=== PATIENT | female | born 1945 | race Caucasian/White ===

== ENCOUNTER 2022-05-20 00:30 | Inpatient (IN) | payer MEDICARE, OTHER, SELFPAY ==
[2022-05-20] VITALS (21 sets, daily range): BP systolic 126–151; BP diastolic 52–71; PULSE 40–63; RESP 13–18; TEMP 35.8–37.3; O2SAT 78–100; BMI 23.2; BMI 20.5
--- NOTE | 2022-05-20 00:36 | ED_ITS ---
HPI - General Adult General Chief complaint: Abdominal Pain Stated complaint: ABDOMINAL PAIN VOMITING Time Seen by Provider: 05/20/22 00:35 Source: patient Mode of arrival: ambulatory History of Present Illness HPI narrative: 77-year-old female who comes in with abdominal pain, nausea, and vomiting. Pain started about 90 minutes prior to coming the emergency department, generalized all over the abdomen, described as sharp and achy. Pain is constant, no relieving or exacerbating factors, not worse when lying down versus sitting up , no radiation. She did vomit once and continues to be nauseated. She denies diarrhea or constipation. She denies fever and chills. No urinary symptoms. Denies chest pain or shortness of breath. Tried Pepcid AC for this with no relief. No ill contacts. Related Data Home Medications Medication Instructions Recorded Confirmed atenolol 50 mg tablet 50 mg PO .QHS 05/20/22 05/20/22 atorvastatin 40 mg tablet 40 mg PO .QHS 05/20/22 05/20/22 calcium carbonate 200 mg calcium 1 tab PO DAILY 05/20/22 05/20/22 (500 mg)-vitamin D3 400 unit tablet coenzyme Q10 200 mg capsule 200 mg PO DAILY 05/20/22 05/20/22 famotidine PO 05/20/22 glucosamine-chondroitin 250 mg-200 2 tab PO TID 05/20/22 05/20/22 mg tablet (Osteo Bi-Flex) leflunomide 10 mg tablet 10 mg PO DAILY 05/20/22 05/20/22 omega-3 fatty acids 1,000 mg 1,000 mg PO DAILY 05/20/22 05/20/22 capsule trazodone 50 mg tablet 50 mg PO .QHS 05/20/22 05/20/22 triamterene 37.5 1 tab PO DAILY 05/20/22 05/20/22 mg-hydrochlorothiazide 25 mg tablet Allergies Allergy/AdvReac Type Severity Reaction Status Date / Time diclofenac Allergy Unknown Verified 05/20/22 01:05 Review of Systems Status of ROS: Reports: 10 or more systems reviewed and unremarkable except as noted in History and below [facility] Medical History (Updated 05/20/22 @ 04:56 by Nishant Kc MD) Arthritis Elevated cholesterol GERD (gastroesophageal reflux disease) Hypertension Osteoporosis Polyarthritis rheumatica Surgical History (Updated 05/20/22 @ 01:08 by Rajwinder Taylor RN) H/O tubal ligation History of appendectomy History of left knee replacement Social History Smoking Status: Unknown if ever smoked How often do you have a drink containing alcohol: never AUDIT-C Alcohol total score: 0 Non-prescribed substance use: denies use service: No Exam Const: Vital Signs, click to edit/add: Vital Signs - 24 hr 05/20/22 00:45 05/20/22 01:10 05/20/22 01:40 Temperature 96.4 F L Pulse Rate [Right Femoral] 43 L 42 L 43 L Pulse Rate [Right Pulse Oximeter] Respiratory Rate 18 16 18 Blood Pressure [Le ft Upper Arm] 144/60 H 126/55 L Blood Pressure [Ri ght Upper Arm] 139/60 Pulse Oximetry 97 100 89 05/20/22 02:00 05/20/22 02:20 05/20/22 02:30 Temperature Pulse Rate [Right Femoral] Pulse Rate [Right Pulse Oximeter] 45 L 46 L 53 L Respiratory Rate 16 18 18 Blood Pressure [Le ft Upper Arm] 137/59 L 140/57 H 147/71 H Blood Pressure [Ri ght Upper Arm] Pulse Oximetry 97 99 98 05/20/22 03:45 Temperature Pulse Rate [Right Femoral] Pulse Rate [Right Pulse Oximeter] 54 L Respiratory Rate 16 Blood Pressure [Le ft Upper Arm] 151/54 H Blood Pressure [Ri ght Upper Arm] Pulse Oximetry 95 Documenting provider has reviewed patient's vital signs: yes Common normals: no apparent distress, oriented x3, alert and well nourished HENMT: Common normals: normocephalic, head/scalp atraumatic, external ears normal and external nose normal Head and scalp: normocephalic and atraumatic Nose: external nose normal External ear: external ears normal Eye: Common normals: PERRL and conjunctivae normal Conjunctiva: conjunctiva(e) normal Pupil: PERRL Neck & C-Spine: Common normals: full ROM, no lymphadenopathy and supple Chest: Common normals: palpation of chest normal Resp: Common normals: normal respiratory effort and clear to auscultation bilaterally Auscultation: clear to auscultation bilaterally Cardio: Common normals: regular rhythm and no murmurs Rate: bradycardic Rhythm: regular rhythm GI: Common normals: Normal to inspection, nondistended, normoactive bowel sounds present and soft to palpation Palpation: soft and tender ( diffuse, particularly in the right upper quadrant and left lower quadrant) : Common normals: no CVA tenderness Bladder/kidney exam: no CVA tenderness Back & Pelvis: Common normals: no CVA tenderness and thoracic and lumbar spine normal to inspection Extremity: Common normals: normal to inspection, full ROM and no pedal edema Neuro: Common normals: oriented x3, CN's II-XII intact bilaterally and no focal motor deficits Sensorium/orientation: alert Psych: Common normals: mental status grossly normal Skin: Common normals: no rashes or lesions noted General skin exam: no rashes or lesions noted Course Reevaluation(s) Reevaluation #1: Labs so far reassuring with normal white blood cell count, normal lipase. CT scan does not demonstrate any acute findings, there is a large hiatal hernia. No definite etiology for patient's symptoms is found yet. She is continuously bradycardic and also noted to be intermittently hypoxic down to the 70s although with no respiratory distress. This may be related to the lab of the was given although patient is awake alert. Right upper quadrant ultrasound is ordered, troponin ordered, patient is not yet provided a urine sample. COVID and influenza test. Patient is noted to have lymphocytosis of unclear clinical significance. Pain is improved after Dilaudid IV and nausea and vomiting resolved. Time: 02:08 Reevaluation #2: Patient recheck, was feeling better but nausea vomiting have returned and patient is dry heaving. Discussed findings so far, recommendation for observation in the hospital to work on symptom management and also make sure there are no other underlying conditions causing this. Patient is agreeable. Time: 04:49 Reevaluation #3: Care discussed with [facility] hospitalist for admission. Time: 04:55 Vital Signs Vital signs: Initial Vital Signs Temperature 96.4 F L 05/20/22 00:45 Temperature Source Temporal Artery Scan 05/20/22 00:45 Pulse Rate 43 L 05/20/22 00:45 Pulse Rhythm 05/20/22 00:45 Respiratory Rate 18 05/20/22 00:45 Blood Pressure 139/60 05/20/22 00:45 Blood Pressure Mean 86 05/20/22 00:45 Blood Pressure Position Semi-Fowlers 05/20/22 00:45 Pulse Oximetry 97 05/20/22 00:45 Oxygen Delivery Method 05/20/22 00:45 Vital Signs Temperature 96.4 F L 05/20/22 00:45 Pulse Rate 43 L 05/20/22 00:45 Respiratory Rate 18 05/20/22 00:45 Blood Pressure 139/60 05/20/22 00:45 Pulse Oximetry 97 05/20/22 00:45 Temperature 96.4 F L 05/20/22 00:45 Pulse Rate 54 L 05/20/22 03:45 Respiratory Rate 16 05/20/22 03:45 Blood Pressure 151/54 H 05/20/22 03:45 Pulse Oximetry 95 05/20/22 03:45 Medical Decision Making MDM Narrative Medical decision making narrative: Patient seen examined, prior records reviewed. Differential diagnosis includes but not limited to gastritis, gastric ulcer, colitis, pancreatitis, acute cholecystitis, diverticulitis, appendicitis, urinary tract infection, bowel obstruction, perforation, kidney stone. Patient presents with abdominal pain, nausea, vomiting. she has generalized tenderness worse in the right upper quadrant left lower quadrant. Based on age and risk factors, acute cholecystitis is certainly concern, diverticulitis Also possibility.Labs and imaging ordered and personally reviewed by me. Zofran and Dilaudid IV ordered for pain. Patient presents with generalized abdominal pain and vomiting starting tonight. On initial presentation, pale and uncomfortable appearing with diffuse abdominal tenderness, decreased bowel sounds throughout. Symptoms improved with Zofran and Dilaudid although patient started having vomiting and dry heaves again while in department and additional Zofran was given. No etiology for symptoms found, considered acute cholecystitis but CT scan of right upper quadrant ultrasound are both negative, LFTs are normal. Normal pancreatic appearance on CT and lipase is normal. No evidence for obstruction on CT scan. No evidence for diverticulitis or colitis on CT scan, white blood cell count is normal. Urinalysis does not reveal any signs of infection, influenza and COVID testing negative. Troponin negative, EKG bradycardic reassuring, acute coronary syndrome is unlikely. Patient denies chest pain, back pain, aortic dissection or other aortic pathology is unlikely. Chest x-ray negative for infiltrates or effusions. Patient does have a large hiatal hernia which is chronic. Due to continued nausea and vomiting as well as abdominal pain of uncertain etiology, patient will be observed for further evaluation treatment. patient is agreeable to this. Medical Records Medical records reviewed: Yes I reviewed the patient's medical records Lab Data Lab results reviewed: Yes I reviewed the patient's lab results Labs: Lab Results 05/20/22 05/20/22 05/20/22 Range/Units 00:50 00:50 00:50 WBC 6.94 (4.50-11.00) K/uL RBC 3.63 L (4.00-5.20) m/uL Hgb 11.4 L (12.0-16.0) gm/dL Hct 35.5 (33.0-51.0) % MCV 98 (80-100) fL MCH 31 (26-34) pg MCHC 32 (32-36) gm/dL RDW Coeff of Alberto 12.6 (11.5-15.5) % Plt Count 267 (140-440) K/uL Neut % (Auto) 26.9 L (42.0-72.0) % Lymph % (Auto) 52.9 H (20-44) % Jennings % (Auto) 10.4 (0.0-11.0) % Eos % (Auto) 8.8 H (0.0-7.0) % Baso % (Auto) 0.6 (0.0-3.0) % Neut # (Auto) 1.90 (1.7-7.0) K/uL Lymph # (Auto) 3.70 H (0.90-2.90) K/uL Jennings # (Auto) 0.70 (0.00-0.90) K/UL Eos # (Auto) 0.60 H (0.00-0.50) K/uL Baso # (Auto) 0.04 (0.00-0.30) K/uL Abs Immat Gran (auto) 0.03 (0.00-0.30) K/uL Sodium 136 (135-149) mmol/L Potassium 4.0 (3.6-5.1) mmol/L Chloride 104 (96-114) mmol/L Carbon Dioxide 28 (20-32) mmol/L BUN 17 (7-30) mg/dL Creatinine 1.3 (0.5-1.5) mg/dL Estimated Creat Clear 31.29 Glucose 137 H (60-115) mg/dL Lactate 1.7 (0.5-1.9) mmol/L Calcium 9.0 (8.4-10.6) mg/dL Total Bilirubin 0.3 (0.1-1.5) mg/dL Direct Bilirubin 0.3 (0.0-0.5) mg/dL AST 47 H (12-35) U/L ALT 22 (4-35) U/L Alkaline Phosphatase 53 (40-150) U/L Total Protein 6.3 (6.0-8.3) g/dL Albumin 4.0 (3.3-5.0) g/dL Lipase 249 (23-300) U/L Urine Color (Yellow) Urine Appearance (Clear) Urine pH (5.0-8.5) Ur Specific [place] (1.000-1.030) Urine Protein (Negative) Urine Glucose (UA) (Negative) Urine Ketones (Negative) Urine Blood (Negative) Urine Nitrite (Negative) Urine Bilirubin (Negative) Urine Urobilinogen (0.2-1.0) Ur Leukocyte Esterase (Negative) Urine RBC (0-2) Urine WBC (0-5) Ur Squamous Epith Cells (None-Few) Urine Bacteria (None) SARS-CoV-2 (PCR) (Negative) Influenza Type A (PCR) (Negative) Influenza Type B (PCR) (Negative) POC Troponin I (0.01-0.04) ng/ml 05/20/22 05/20/22 05/20/22 Range/Units 02:15 02:25 03:45 WBC (4.50-11.00) K/uL RBC (4.00-5.20) m/uL Hgb (12.0-16.0) gm/dL Hct (33.0-51.0) % MCV (80-100) fL MCH (26-34) pg MCHC (32-36) gm/dL RDW Coeff of Alberto (11.5-15.5) % Plt Count (140-440) K/uL Neut % (Auto) (42.0-72.0) % Lymph % (Auto) (20-44) % Jennings % (Auto) (0.0-11.0) % Eos % (Auto) (0.0-7.0) % Baso % (Auto) (0.0-3.0) % Neut # (Auto) (1.7-7.0) K/uL Lymph # (Auto) (0.90-2.90) K/uL Jennings # (Auto) (0.00-0.90) K/UL Eos # (Auto) (0.00-0.50) K/uL Baso # (Auto) (0.00-0.30) K/uL Abs Immat Gran (auto) (0.00-0.30) K/uL Sodium (135-149) mmol/L Potassium (3.6-5.1) mmol/L Chloride (96-114) mmol/L Carbon Dioxide (20-32) mmol/L BUN (7-30) mg/dL Creatinine (0.5-1.5) mg/dL Estimated Creat Clear Glucose (60-115) mg/dL Lactate (0.5-1.9) mmol/L Calcium (8.4-10.6) mg/dL Total Bilirubin (0.1-1.5) mg/dL Direct Bilirubin (0.0-0.5) mg/dL AST (12-35) U/L ALT (4-35) U/L Alkaline Phosphatase (40-150) U/L Total Protein (6.0-8.3) g/dL Albumin (3.3-5.0) g/dL Lipase (23-300) U/L Urine Color Yellow (Yellow) Urine Appearance Clear (Clear) Urine pH 6.0 (5.0-8.5) Ur Specific [place] 1.025 (1.000-1.030) Urine Protein Negative (Negative) Urine Glucose (UA) Negative (Negative) Urine Ketones Negative (Negative) Urine Blood Negative (Negative) Urine Nitrite Negative (Negative) Urine Bilirubin Negative (Negative) Urine Urobilinogen 0.2 (0.2-1.0) Ur Leukocyte Esterase Negative (Negative) Urine RBC 0-2 (0-2) Urine WBC 0-2 (0-5) Ur Squamous Epith Cells Moderate A (None-Few) Urine Bacteria Few A (None) SARS-CoV-2 (PCR) Negative SARS-CoV-2 (Negative) Influenza Type A (PCR) NEGATIVE (Negative) Influenza Type B (PCR) NEGATIVE (Negative) POC Troponin I 0.00 L (0.01-0.04) ng/ml ECG Data Attestation: I personally reviewed and interpreted this ECG as follows: Prior ECG tracings: available for review Interpretation: Performed at 1:07 a.m. demonstrates sinus bradycardia rate 44, no acute ST elevations or depressions, normal intervals, normal axis, QTC 47, KS 174. Compared to prior of 2008, bradycardia is present Discharge Plan Discharge Clinical Impression: Intractable nausea and vomiting, Abdominal pain, Hernia, hiatal Patient Disposition: Admitted As Inpatient Prescriptions: No Action atorvastatin 40 mg tablet 40 mg PO .QHS 0RF trazodone 50 mg tablet 50 mg PO .QHS 0RF leflunomide 10 mg tablet 10 mg PO DAILY 0RF triamterene-hydrochlorothiazid 37.5-25 mg tablet 1 tab PO DAILY 0RF Rx Instructions: 10MG PO DAILY atenolol 50 mg tablet 50 mg PO .QHS 0RF glucosamine-chondroitin [Osteo Bi-Flex] 250-200 mg tablet 2 tab PO TID 0RF Rx Instructions: give after food/meal omega-3 fatty acids 1,000 mg capsule 1,000 mg PO DAILY 0RF coenzyme Q10 200 mg capsule 200 mg PO DAILY 0RF calcium carbonate-vitamin D3 200 mg (500 mg) -400 unit tablet 1 tab PO DAILY 0RF famotidine [Pepcid AC] PO 0RF Follow Up/Referrals: Provider,Not a Local [Primary Care Provider] -
--- NOTE | 2022-05-20 00:48 | CRLHL7_ITS ---
For Patients: As a result of the Century Cures Act, medical imaging exams and procedure reports are released immediately into your electronic medical record. You may view this report before your referring provider. If you have questions, please contact your health care provider. INDICATION: Abdominal pain and vomiting. COMPARISON: COMPARISON DATE TECHNIQUE: CT examination of the abdomen and pelvis was performed without contrast enhancement using 3 mm thick axial sections from the lung bases through the pubic symphysis. Oral contrast was not administered. Please note that all CT scans at this facility use dose modulation, iterative reconstruction, and/or weight-based dosing when appropriate to reduce radiation dose to as low as reasonably achievable. FINDINGS: In the abdomen, the unenhanced liver, spleen, pancreas, and adrenals are normal in appearance. The unenhanced kidneys are normal in appearance. The gallbladder is normal in appearance. The abdominal aorta is normal in caliber with no sign of dilatation. There is no sign of retroperitoneal mass or adenopathy. There is a large hiatal hernia with the majority of the stomach and the nonobstructive splenic flexure of the colon located within the central and left lower chest. The gastric antrum is located in the abdominal cavity. The loops of small bowel and the rest of the colon in the abdomen are normal in appearance. In the pelvis, the appendix is nonvisualized, but there is no sign of an inflammatory process in the area of the appendix. There is prominent sigmoid diverticulosis without evidence of diverticulitis. The loops of small bowel and rectum in the pelvis are otherwise normal in appearance. The uterus and adnexal regions are normal in appearance. The urinary bladder is normal in appearance. There is no sign of pelvic or inguinal mass or adenopathy. There is no sign of free air or free fluid in the abdomen or pelvis. The lung bases are clear. There is prominent scoliosis of the superior lumbar spine convex towards the left. There is severe disc degenerative disease throughout the lumbar spine related to the scoliosis. IMPRESSION: Nothing seen to correlate with the history of abdominal pain and vomiting. CT of the abdomen shows a large hiatal hernia otherwise normal appearance of the stomach. The hiatal hernia the nonobstructed splenic flexure of the colon. CT of the pelvis shows prominent sigmoid diverticulosis with no sign of diverticulitis. Please note that all CT scans at this facility use dose modulation, iterative reconstruction, and/or weight-based dosing when appropriate to reduce radiation dose to as low as reasonably achievable. Dictated by Chun Gifford MD @ 05/20/2022 1:43:54 AM (Electronically Signed)
[2022-05-20 00:56] LABS: Lactate* 1.7 mmol/L (0.5-1.9)
[2022-05-20 00:58] LABS: Basophils Absolute Auto 0.04 K/uL (0.00-0.30); Basophils Percent Auto 0.6 % (0.0-3.0); Eosinophils Percent Auto 8.8 % (0.0-7.0); Hematocrit 35.5 % (33.0-51.0); Hemoglobin* 11.4 gm/dL (12.0-16.0); Immature Granulocytes Abs Auto 0.03 K/uL (0.00-0.30); Lymphocytes Percent Auto 52.9 % (20-44); Mean Corpuscular HGB Conc 32 gm/dL (32-36); Mean Corpuscular Hemoglobin 31 pg (26-34); Mean Corpuscular Volume 98 fL (80-100); Monocytes Percent Auto 10.4 % (0.0-11.0); Neutrophils Percent Auto 26.9 % (42.0-72.0); Platelet Count* 267 K/uL (140-440); RDW Coefficient of Variation % 12.6 % (11.5-15.5); Red Blood Count 3.63 m/uL (4.00-5.20); White Blood Count* 6.94 K/uL (4.50-11.00)
[2022-05-20 01:02] LABS: Slide Review Reflex No
[2022-05-20] MEDS: ONDANSETRON 2 MG/ML inj 4 MG IVP ×4 (01:04→18:38)
[2022-05-20] MEDS: HYDROmorphone 0.5 mg/0.5 ml inj IVP ×6 (01:05→21:30)
[2022-05-20 01:30] LABS: Chloride* 104 mmol/L (96-114)
[2022-05-20 01:31] LABS: Sodium* 136 mmol/L (135-149)
[2022-05-20 01:33] LABS: Alkaline Phosphatase* 53 U/L (40-150); Aspartate Amino Transferase* 47 U/L (12-35); Bilirubin Direct* 0.3 mg/dL (0.0-0.5); Bilirubin Total* 0.3 mg/dL (0.1-1.5); Blood Urea Nitrogen* 17 mg/dL (7-30); Carbon Dioxide* 28 mmol/L (20-32); Creatinine* 1.3 mg/dL (0.5-1.5); Est. Creatinine Clearance* 31.29; Estimated Glomerular Filt Rate 42.35; Glucose* 137 mg/dL (60-115); Lipase* 249 U/L (23-300); Total Protein* 6.3 g/dL (6.0-8.3)
[2022-05-20 01:34] LABS: Alanine Aminotransferase* 22 U/L (4-35)
--- NOTE | 2022-05-20 01:56 | ED.NURSE ---
Patient having episodes of decreased SpO2 levels in to the 70's. MD notified. Patient placed on 2 lpm oxygen via [place].
--- NOTE | 2022-05-20 02:11 | CRLHL7_ITS ---
For Patients: As a result of the Cures Act, medical imaging exams and procedure reports are released immediately into your electronic medical record. You may view this report before your referring provider. If you have questions, please contact your health care provider. INDICATION: Vomiting, abdominal pain TECHNIQUE: Ultrasound abdomen limited. Sonographic images of the right upper quadrant were obtained using rey-scale and color Doppler images. COMPARISON: CT 05/20/2022 FINDINGS: The sensitivity and specificity of the exam are moderately limited by the patient`s body habitus and overlying bowel gas. Liver: The liver parenchyma is normal in echotexture. Gallbladder: The neck of the gallbladder is not well demonstrated. No gallstones or sludge seen in the lumen. The gallbladder wall is normal in appearance. No pericholecystic fluid is present. No sonographic Beltre???s sign is present. Common bile duct: 3 mm. No intrahepatic biliary ductal dilatation seen. Pancreas: The visualized portions of the pancreatic head and body are normal in appearance. Right Kidney: 8.3 cm. No hydronephrosis or ureterectasis is seen. Vascular: The visualized abdominal aorta and IVC are unremarkable. The visualized portal vein is patent with normal anterograde flow. IMPRESSION: 1. The right upper quadrant is unremarkable in appearance. Dictated by Sanket Alonso MD @ 05/20/2022 3:44:10 AM Dictated by: Sanket Alonso MD @ 05/20/2022 03:44:13 (Electronically Signed)
--- NOTE | 2022-05-20 02:12 | CRLHL7_ITS ---
For Patients: As a result of the Cures Act, medical imaging exams and procedure reports are released immediately into your electronic medical record. You may view this report before your referring provider. If you have questions, please contact your health care provider. INDICATION: Vomiting, low oxygen saturations TECHNIQUE: Chest radiograph 2 views COMPARISON: None FINDINGS: Mediastinum: Moderate to large sliding type gastric hiatal hernia (type IV) is present. The heart silhouette is normal in size and morphology. Lung: Both lungs are unremarkable in appearance. No sign of pleural effusion seen. No pneumothorax is identified. Bone and Soft tissue: Unremarkable for age. IMPRESSION: 1. Moderate to large sliding type gastric hiatal hernia (type IV) is present. Dictated by Sanket Alonso MD @ 05/20/2022 2:59:07 AM Dictated by: Sanket Alonso MD @ 05/20/2022 02:59:13 (Electronically Signed)
--- NOTE | 2022-05-20 02:32 | ED.NURSE ---
Patient resting on cot in room with at bedside. Awaiting on-call u/s tech.
[2022-05-20 03:01] LABS: PCR FLU A NEGATIVE (Negative); PCR FLU B NEGATIVE (Negative); SARS PCR* Negative SARS-CoV-2 (Negative)
[2022-05-20 03:56] LABS: Appearance Urine Clear (Clear); Bilirubin Urine Negative (Negative); Blood Urine Negative (Negative); Color Urine Yellow (Yellow); Glucose Urine Negative (Negative); Ketones Urine Negative (Negative); Leukocyte Esterase Urine Negative (Negative); Nitrite Urine Negative (Negative); Protein Urine Negative (Negative); Specific Gravity Urine 1.025 (1.000-1.030); Urobilinogen Urine 0.2 (0.2-1.0)
[2022-05-20 04:06] LABS: RBC Urine 0-2 (0-2); WBC Urine 0-2 (0-5)
[2022-05-20 04:07] LABS: Bacteria Urine Few; Squamous Epithelial Cell Urine Moderate (None-Few)
--- NOTE | 2022-05-20 04:15 | ED.NURSE ---
Patient ambulatory to . Urine collected and sent to lab.
[2022-05-20] MEDS: 0.9 % SODIUM CHLORIDE 500 ML 500 ML 250 ML IV (05:15)
[2022-05-20] MEDS: PANTOPRAZOLE SODIUM 40 MG INJ IVP (05:27)
--- NOTE | 2022-05-20 06:20 | W.PC.EDHO ---
Primary Language: Preferred Language: Orientation Status: [x] Alert & Oriented [] Slight Confusion [] Known Dx Dementia Transfers By: [x] Assist of 1 [] Assist of 2 [] Lift IV Size: 20g IV Site Location: R a/c Description of Symptoms ED Triage Present Problem Patient c/o medial abdominal pain and vomiting x 3 Description that started at 2300 today. Patient rates this pain at a 10. Patient denies prior abdominal problems with the exception of a h/o appendectomy. ED Triage Date of Onset of 05/19/22 Symptoms Female History Patient Patient No Pain Pain Description [Medial Burning,Sharp,Dull, Achy,Cramping Abdomen] Pain Description [Medial Burning,Sharp,Cramping Abdomen] Pain Description Sharp Pain Intensity [Medial Abdomen 9 ] Pain Intensity [Medial Abdomen 10 ] Pain Intensity 9 Pain Intensity 10 Pain Scale Used [Medial Numeric (1 - 10) Abdomen] Pain Scale Used Numeric (1 - 10) Pain Scale Used Numeric (1 - 10) Pain Frequency Frequent IV Insertion/Site Date of IV Line Insertion [ 05/20/22 Right Upper Arm] Oxygen Administration Pulse Oximetry 99 Pulse Oximetry 91 Pulse Oximetry 95 Pulse Oximetry 95 Pulse Oximetry 98 Pulse Oximetry 99 Pulse Oximetry 97 Pulse Oximetry 78 Pulse Oximetry 89 Pulse Oximetry 100 Pulse Oximetry 97 Oxygen Delivery Method Room Air Oxygen Delivery Method Room Air Oxygen Delivery Method Room Air Oxygen Delivery Method Room Air Oxygen Delivery Method Nasal Cannula Oxygen Delivery Method Nasal Cannula Oxygen Delivery Method Nasal Cannula Oxygen Delivery Method Nasal Cannula Oxygen Delivery Method Room Air Oxygen Delivery Method Room Air Oxygen Delivery Method Room Air Oxygen Flow Rate 3 Oxygen Flow Rate 3 Oxygen Flow Rate 3 Oxygen Flow Rate 2 Cardiac Monitoring EKG Method 12 Lead
[2022-05-20] MEDS: LACTATED RINGERS 1000 ML 500 ML IV (10:10)
--- NOTE | 2022-05-20 11:52 | P.IMHP_ITS ---
Hospitalist- H&P: HPI History of Present Illness Time Seen by Provider: 08:30 Date Seen: 05/20/22 Chief complaint: ABDOMINAL PAIN VOMITING Narrative: Moni Hdez is a 77 year old female presented the emergency room late last night with abdominal pain and vomiting. Patient reported feeling well yesterday. She had a evening meal around 5:00 a.m. without difficulties. She went to bed and awoke at 11:00 pm with severe generalized abdominal pain. She then had dry heaves. She was not vomiting any substance up but had recurrent dry heaves. She has not had a fever or shortness of breath or chest pain. She tells me she had a milder episode about a week ago. It occurred while she was sitting down to eat pizza. While she was eating pizza she had pain and stopped eating immediately. Her symptoms resolved without intervention. She has no other history of abdominal pain or vomiting. Past surgical history includes appendectomy and tubal ligation. She has not had any urinary symptoms, frequency urgency dysuria. Her bowel function has been normal without diarrhea, constipation, melena, hematochezia. She tells me she has been told she has a hiatal hernia in the past but is not been symptomatic for her. Review of Systems Narrative: patient reports that she has been generally feeling well without other health concerns recently until this episode at 11:00 p.m. last night. Complete review of systems is otherwise negative. [facility] Medical History (Updated 05/20/22 @ 12:05 by Pro Catalan MD) Anemia Arthritis DVT (deep venous thrombosis) Elevated cholesterol Generalized osteoarthritis GERD (gastroesophageal reflux disease) Hyperlipidemia Hypertension Inflammatory spondylopathy Osteoporosis Polyarthritis rheumatica Raynaud phenomenon Surgical History H/O blepharoplasty H/O tubal ligation History of appendectomy History of left knee replacement Family History (Updated 05/20/22 @ 12:03 by Pro Catalan MD) Father Dementia Mother Coronary artery disease Social History Smoking Status: Never smoker How often do you have a drink containing alcohol: never AUDIT-C Alcohol total score: 0 Non-prescribed substance use: denies use Caffeine: Yes (1-2 cup coffee) service: No Meds Home Medications and Allergies Home Medications Medication Instructions Recorded Confirmed Type atenolol 50 mg tablet 50 mg PO HS 05/20/22 05/20/22 History atorvastatin 40 mg tablet 40 mg PO HS 05/20/22 05/20/22 History calcium carbonate 200 mg calcium 1 tab PO DAILY 05/20/22 05/20/22 History (500 mg)-vitamin D3 400 unit tablet coenzyme Q10 200 mg capsule 200 mg PO DAILY 05/20/22 05/20/22 History famotidine PO 05/20/22 History glucosamine-chondroitin 250 mg-200 2 tab PO TID 05/20/22 05/20/22 History mg tablet (Osteo Bi-Flex) leflunomide 10 mg tablet 10 mg PO DAILY 05/20/22 05/20/22 History omega-3 fatty acids 1,000 mg 1,000 mg PO DAILY 05/20/22 05/20/22 History capsule trazodone 50 mg tablet 50 mg PO HS 05/20/22 05/20/22 History triamterene 37.5 1 tab PO DAILY 05/20/22 05/20/22 History mg-hydrochlorothiazide 25 mg tablet Allergies Allergy/AdvReac Type Severity Reaction Status Date / Time diclofenac Allergy Unknown Verified 05/20/22 01:05 Exam Narrative: Exam Narrative: she is alert and appears in no distress. Speech is normal. She gives her own history. She is oriented to her circumstances. Head is without trauma. Eyes normal. Sclerae nonicteric. Oropharynx is normal. Neck is supple without mass or adenopathy. No tenderness. Respirations are clear to auscultation. No wheezing, rales, rhonchi. Cardiovascular: S1, S2, regular rate and rhythm. No murmur gallop or rub. Abdomen: Bowel sounds active. Abdomen is soft. She has mild diffuse abdominal tenderness somewhat more prominent in the epigastrium than elsewhere. No palpable mass. She has no CVA tenderness. No peritonitis. External genitalia normal. Extremities with intact pulses and sensation. No edema. No tenderness. No rash. Const: Vital Signs, click to edit/add: Vital Signs - 24 hr 05/20/22 00:45 05/20/22 01:10 05/20/22 01:40 Temperature 96.4 F L Pulse Rate Pulse Rate [Right Femoral] 43 L 42 L 43 L Pulse Rate [Right Pulse Oximeter] Respiratory Rate 18 16 18 Blood Pressure [Le ft Arm] Blood Pressure [Le ft Upper Arm] 144/60 H 126/55 L Blood Pressure [Ri ght Upper Arm] 139/60 Pulse Oximetry 97 100 89 05/20/22 01:56 05/20/22 02:00 05/20/22 02:20 Temperature Pulse Rate Pulse Rate [Right Femoral] Pulse Rate [Right Pulse Oximeter] 45 L 46 L Respiratory Rate 16 18 Blood Pressure [Le ft Arm] Blood Pressure [Le ft Upper Arm] 137/59 L 140/57 H Blood Pressure [Ri ght Upper Arm] Pulse Oximetry 78 L 97 99 05/20/22 02:30 05/20/22 03:45 05/20/22 04:00 Temperature Pulse Rate Pulse Rate [Right Femoral] Pulse Rate [Right Pulse Oximeter] 53 L 54 L 52 L Respiratory Rate 18 16 18 Blood Pressure [Le ft Arm] Blood Pressure [Le ft Upper Arm] 147/71 H 151/54 H 148/67 H Blood Pressure [Ri ght Upper Arm] Pulse Oximetry 98 95 95 05/20/22 04:30 05/20/22 05:00 05/20/22 07:00 Temperature 97.1 F L Pulse Rate Pulse Rate [Right Femoral] Pulse Rate [Right Pulse Oximeter] 41 L 63 Respiratory Rate 13 17 18 Blood Pressure [Le ft Arm] 146/57 H Blood Pressure [Le ft Upper Arm] 128/52 L 127/61 Blood Pressure [Ri ght Upper Arm] Pulse Oximetry 91 99 95 05/20/22 07:23 05/20/22 07:32 05/20/22 08:00 Temperature 97.1 F L 97.6 F Pulse Rate Pulse Rate [Right Femoral] Pulse Rate [Right Pulse Oximeter] 40 L Respiratory Rate 18 18 16 Blood Pressure [Le ft Arm] 146/57 H 130/52 L Blood Pressure [Le ft Upper Arm] Blood Pressure [Ri ght Upper Arm] Pulse Oximetry 95 95 98 05/20/22 08:15 05/20/22 08:26 Temperature Pulse Rate 40 L Pulse Rate [Right Femoral] Pulse Rate [Right Pulse Oximeter] 40 L Respiratory Rate Blood Pressure [Le ft Arm] Blood Pressure [Le ft Upper Arm] Blood Pressure [Ri ght Upper Arm] Pulse Oximetry Documenting provider has reviewed patient's vital signs: yes Hospitalist - H&P: Result Labs Labs: Short CBC 05/20/22 Range/Units 00:50 WBC 6.94 (4.50-11.00) K/uL Hgb 11.4 L (12.0-16.0) gm/dL Hct 35.5 (33.0-51.0) % Plt Count 267 (140-440) K/uL BMP 05/20/22 00:50 Sodium 136 Potassium 4.0 Chloride 104 Carbon Dioxide 28 BUN 17 Creatinine 1.3 Glucose 137 H Calcium 9.0 Liver Function 05/20/22 Range/Units 00:50 Total Bilirubin 0.3 (0.1-1.5) mg/dL Direct Bilirubin 0.3 (0.0-0.5) mg/dL AST 47 H (12-35) U/L ALT 22 (4-35) U/L Alkaline Phosphatase 53 (40-150) U/L Albumin 4.0 (3.3-5.0) g/dL Urine 05/20/22 Range/Units 03:45 Urine Color Yellow (Yellow) Urine Appearance Clear (Clear) Urine pH 6.0 (5.0-8.5) Ur Specific [place] 1.025 (1.000-1.030) Urine Protein Negative (Negative) Urine Glucose (UA) Negative (Negative) Assessment and Plan Assessment and plan (1) Intractable nausea and vomiting: Status: Acute Assessment and Plan: I suspect her abdominal pain and dry heaves are both due to an upper GI problem possibly intermittent gastric volvulus or other obstruction. Other obstructive process less likely. Biliary disease still a possibility though initial imaging is reassuring. Consult General surgery (2) Abdominal pain: Status: Acute Assessment and Plan: see above (3) Hernia, hiatal: Status: Acute Assessment and Plan: see above (4) DVT (deep venous thrombosis): Problem comment: had DVT on hormone replacement therapy Status: Acute Assessment and Plan: VTE prophylaxis (5) Bradycardia: Status: Acute Assessment and Plan: hold atenolol
[2022-05-20] MEDS: LACTATED RINGERS 1000 ML 1,000 ML 125 ML IV ×2 (12:30→17:49)
--- NOTE | 2022-05-20 12:41 | P.GSCN_ITS ---
History of Present Illness Consult details Consult date: 05/20/22 Narrative: 77-year-old female was admitted to the hospital with abdominal pain and I was asked by Dr. Catalan to see here in consultation. The patient states that her pain started over 70 yesterday when she went to bed. The pain was severe and sharp. The pain was located in epigastrium and was radiating throughout her abdomen. Patient also had multiple episodes of vomiting that she describes as dry heaving With fluid coming out. She states that her pain is slightly better but not completely gone. The pain medication is helping with her pain. She is not passing gas. Patient's last bowel movement was yesterday and she usually has regular bowel movements. Patient was found to have a normal WBC and normal liver function tests with the exception of ALT at 47. Gallbladder ultrasound was obtained that showed no cholelithiasis and no pericholecystic fluid. Her common bile duct was [address] was obtained that showed a large hiatal hernia with incarcerated stomach and splenic flexure of the colon with no evidence of Colonic obstruction. overall there are no dilated loops of small large intestine. Review of Systems Narrative: General: no fevers HENT: no problems swallowing CV: no shortness of breath Resp: no cough GI: see above Skin: no new rashes Musculoskeletal: no back pain Neuro: no muscle weakness Psyche: no depression, no anxiety PFSH PFSH Medical History Anemia Arthritis DVT (deep venous thrombosis) Elevated cholesterol Generalized osteoarthritis GERD (gastroesophageal reflux disease) Hyperlipidemia Hypertension Inflammatory spondylopathy Osteoporosis Polyarthritis rheumatica Raynaud phenomenon Surgical History H/O blepharoplasty H/O tubal ligation History of appendectomy History of left knee replacement Family History Father Dementia Mother Coronary artery disease Social History (Updated 05/20/22 @ 12:44 by Derek John MD) Narrative: patient is retired Smoking Status: Never smoker How often do you have a drink containing alcohol: never AUDIT-C Alcohol total score: 0 Non-prescribed substance use: denies use Caffeine: Yes (1-2 cup coffee) service: No Meds Home Medications and Allergies Home Medications Medication Instructions Recorded Confirmed Type atenolol 50 mg tablet 50 mg PO HS 05/20/22 05/20/22 History atorvastatin 40 mg tablet 40 mg PO HS 05/20/22 05/20/22 History calcium carbonate 200 mg calcium 1 tab PO DAILY 05/20/22 05/20/22 History (500 mg)-vitamin D3 400 unit tablet coenzyme Q10 200 mg capsule 200 mg PO DAILY 05/20/22 05/20/22 History famotidine PO 05/20/22 History glucosamine-chondroitin 250 mg-200 2 tab PO TID 05/20/22 05/20/22 History mg tablet (Osteo Bi-Flex) leflunomide 10 mg tablet 10 mg PO DAILY 05/20/22 05/20/22 History omega-3 fatty acids 1,000 mg 1,000 mg PO DAILY 05/20/22 05/20/22 History capsule trazodone 50 mg tablet 50 mg PO HS 05/20/22 05/20/22 History triamterene 37.5 1 tab PO DAILY 05/20/22 05/20/22 History mg-hydrochlorothiazide 25 mg tablet Allergies Allergy/AdvReac Type Severity Reaction Status Date / Time diclofenac Allergy Unknown Verified 05/20/22 01:05 Exam Narrative: Exam Narrative: General appearance: Alert, cooperative, and in no distress Pulmonary: Chest symmetric, lungs clear bilaterally Cardiovascular Heart: Regular rate and rhythm, S1, S2, no murmurs/rubs/gallops Gastrointestinal Abdominal: soft, not distended, tender to palpation in the right lower quadrant and epigastrium with no peritoneal signs. No tenderness to palpation in the left lower quadrant. Skin: Normal skin color, texture, and turgor. No rashes or lesions. Psychiatric: Alert, cooperative, normal affect. Const: Vital Signs, click to edit/add: Vital Signs - 24 hr 05/20/22 00:45 05/20/22 01:10 05/20/22 01:40 Temperature 96.4 F L Pulse Rate Pulse Rate [Right Femoral] 43 L 42 L 43 L Pulse Rate [Right Pulse Oximeter] Respiratory Rate 18 16 18 Blood Pressure [Le ft Arm] Blood Pressure [Le ft Upper Arm] 144/60 H 126/55 L Blood Pressure [Ri ght Upper Arm] 139/60 Pulse Oximetry 97 100 89 05/20/22 01:56 05/20/22 02:00 05/20/22 02:20 Temperature Pulse Rate Pulse Rate [Right Femoral] Pulse Rate [Right Pulse Oximeter] 45 L 46 L Respiratory Rate 16 18 Blood Pressure [Le ft Arm] Blood Pressure [Le ft Upper Arm] 137/59 L 140/57 H Blood Pressure [Ri ght Upper Arm] Pulse Oximetry 78 L 97 99 05/20/22 02:30 05/20/22 03:45 05/20/22 04:00 Temperature Pulse Rate Pulse Rate [Right Femoral] Pulse Rate [Right Pulse Oximeter] 53 L 54 L 52 L Respiratory Rate 18 16 18 Blood Pressure [Le ft Arm] Blood Pressure [Le ft Upper Arm] 147/71 H 151/54 H 148/67 H Blood Pressure [Ri ght Upper Arm] Pulse Oximetry 98 95 95 05/20/22 04:30 05/20/22 05:00 05/20/22 07:00 Temperature 97.1 F L Pulse Rate Pulse Rate [Right Femoral] Pulse Rate [Right Pulse Oximeter] 41 L 63 Respiratory Rate 13 17 18 Blood Pressure [Le ft Arm] 146/57 H Blood Pressure [Le ft Upper Arm] 128/52 L 127/61 Blood Pressure [Ri ght Upper Arm] Pulse Oximetry 91 99 95 05/20/22 07:23 05/20/22 07:32 05/20/22 08:00 Temperature 97.1 F L 97.6 F Pulse Rate Pulse Rate [Right Femoral] Pulse Rate [Right Pulse Oximeter] 40 L Respiratory Rate 18 18 16 Blood Pressure [Le ft Arm] 146/57 H 130/52 L Blood Pressure [Le ft Upper Arm] Blood Pressure [Ri ght Upper Arm] Pulse Oximetry 95 95 98 05/20/22 08:15 05/20/22 08:26 Temperature Pulse Rate 40 L Pulse Rate [Right Femoral] Pulse Rate [Right Pulse Oximeter] 40 L Respiratory Rate Blood Pressure [Le ft Arm] Blood Pressure [Le ft Upper Arm] Blood Pressure [Ri ght Upper Arm] Pulse Oximetry Results Labs Labs: Abnormal lab results 05/20/22 05/20/22 05/20/22 Range/Units 00:50 00:50 02:25 RBC 3.63 L (4.00-5.20) m/uL Hgb 11.4 L (12.0-16.0) gm/dL Neut % (Auto) 26.9 L (42.0-72.0) % Lymph % (Auto) 52.9 H (20-44) % Eos % (Auto) 8.8 H (0.0-7.0) % Lymph # (Auto) 3.70 H (0.90-2.90) K/uL Eos # (Auto) 0.60 H (0.00-0.50) K/uL Glucose 137 H (60-115) mg/dL AST 47 H (12-35) U/L Ur Squamous Epith Cells (None-Few) Urine Bacteria (None) POC Troponin I 0.00 L (0.01-0.04) ng/ml 05/20/22 Range/Units 03:45 RBC (4.00-5.20) m/uL Hgb (12.0-16.0) gm/dL Neut % (Auto) (42.0-72.0) % Lymph % (Auto) (20-44) % Eos % (Auto) (0.0-7.0) % Lymph # (Auto) (0.90-2.90) K/uL Eos # (Auto) (0.00-0.50) K/uL Glucose (60-115) mg/dL AST (12-35) U/L Ur Squamous Epith Cells Moderate A (None-Few) Urine Bacteria Few A (None) POC Troponin I (0.01-0.04) ng/ml Diabetes panel 05/20/22 Range/Units 00:50 Sodium 136 (135-149) mmol/L Potassium 4.0 (3.6-5.1) mmol/L Chloride 104 (96-114) mmol/L Carbon Dioxide 28 (20-32) mmol/L BUN 17 (7-30) mg/dL Creatinine 1.3 (0.5-1.5) mg/dL Glucose 137 H (60-115) mg/dL Calcium 9.0 (8.4-10.6) mg/dL AST 47 H (12-35) U/L ALT 22 (4-35) U/L Alkaline Phosphatase 53 (40-150) U/L Total Protein 6.3 (6.0-8.3) g/dL Albumin 4.0 (3.3-5.0) g/dL Calcium panel 05/20/22 Range/Units 00:50 Calcium 9.0 (8.4-10.6) mg/dL Albumin 4.0 (3.3-5.0) g/dL Pituitary panel 05/20/22 Range/Units 00:50 Sodium 136 (135-149) mmol/L Potassium 4.0 (3.6-5.1) mmol/L Chloride 104 (96-114) mmol/L Carbon Dioxide 28 (20-32) mmol/L BUN 17 (7-30) mg/dL Creatinine 1.3 (0.5-1.5) mg/dL Glucose 137 H (60-115) mg/dL Calcium 9.0 (8.4-10.6) mg/dL Adrenal panel 05/20/22 Range/Units 00:50 Sodium 136 (135-149) mmol/L Potassium 4.0 (3.6-5.1) mmol/L Chloride 104 (96-114) mmol/L Carbon Dioxide 28 (20-32) mmol/L BUN 17 (7-30) mg/dL Creatinine 1.3 (0.5-1.5) mg/dL Glucose 137 H (60-115) mg/dL Calcium 9.0 (8.4-10.6) mg/dL Total Bilirubin 0.3 (0.1-1.5) mg/dL AST 47 H (12-35) U/L ALT 22 (4-35) U/L Alkaline Phosphatase 53 (40-150) U/L Total Protein 6.3 (6.0-8.3) g/dL Albumin 4.0 (3.3-5.0) g/dL All other labs normal. Assessment and Plan Assessment and plan (1) Intractable nausea and vomiting: Status: Acute (2) Abdominal pain: Status: Acute (3) Hernia, hiatal: Status: Acute (4) DVT (deep venous thrombosis): Problem comment: had DVT on hormone replacement therapy Status: Acute (5) Bradycardia: Status: Acute Plan 77-year-old female presents with abdominal pain that is most likely due to incarcerated hiatal hernia. I discussed with the patient her imaging findings. Patient's abdominal ultraso und is normal. On her abdominal CT she has a large hiatal hernia with most of her stomach incarcerated in the hernia as well as her splenic flexure incarcerated in the hernia with no evidence of large colon obstruction. Patient might have experienced stomach volvulus that cause her pain. Patient's pain is currently getting better. I discussed with the patient that her hiatal hernia would need to be repaired surgically. This is not a surgery that we do frequently and I would recommend referral to a tertiary center. We can try a trial of clear liquid diet and if patient is doing well and her pain is improving, this could be done as outpatient. Otherwise, she will need to be transferred to higher level of care.
[2022-05-20] MEDS: PROCHLORPERAZINE 5 MG/ML VIAL IV ×2 (13:55→20:24)
--- NOTE | 2022-05-20 20:03 | PC.NURSE ---
Pt. fatigued and sleepy throughout shift. O2 sats dropped into low 70s when falling asleep. Increased into upper 90s w/waking and using 1L NC while sleeping. MD updated. Tele showing periods of afib cristel and sinus cristel, HRs as low as 39. EKG completed; ECHO ordered and completed. Pt. asymptomatic other than fatigue. Vitals otherwise stable. Abdominal pain 8-10, 5/10 w/IV Dilaudid. IV infiltrated this morning during bolus. Restarted via anesthesia. #22 in right hand infusing LR @ 125/hr. Nausea not as responsive to zofran, better w/compazine.
[2022-05-20] MEDS: ENOXAPARIN 40 MG/0.4 ML INJ SUBCUT (22:03)
[2022-05-20] MEDS: ATORVASTATIN CALCIUM 40 MG TABLET PO (22:04)
[2022-05-20] MEDS: TRAZODONE HCL 50 MG TABLET PO (22:04)
[2022-05-21] MEDS: LACTATED RINGERS 1000 ML 1,000 ML 125 ML IV (01:47)
[2022-05-21 02:54] VITALS: BP 142/59; PULSE 62; RESP 16; TEMP 36.7; O2SAT 94
[2022-05-21] MEDS: OMEPRAZOLE 20 MG CAPSULE DR PO (06:14)
--- NOTE | 2022-05-21 06:30 | PC.NURSE ---
[id number]: Patient pleasant and cooperative. Fatigued. Rates pain 4-8/10. PRN Dilaudid x2 administered for relief. Compazine x1 for nausea. Tolerating clears. Independent in room with SBA d/t IV. Voiding. No emesis on this shift.
[2022-05-21 07:21] LABS: Basophils Absolute Auto 0.03 K/uL (0.00-0.30); Basophils Percent Auto 0.4 % (0.0-3.0); Eosinophils Absolute Auto 0.06 K/uL (0.00-0.50); Eosinophils Percent Auto 0.8 % (0.0-7.0); Hematocrit 35.9 % (33.0-51.0); Hemoglobin* 11.5 gm/dL (12.0-16.0); Immature Granulocytes Abs Auto 0.02 K/uL (0.00-0.30); Lymphocytes Percent Auto 16.5 % (20-44); Mean Corpuscular HGB Conc 32 gm/dL (32-36); Mean Corpuscular Hemoglobin 32 pg (26-34); Mean Corpuscular Volume 99 fL (80-100); Monocytes Percent Auto 9.2 % (0.0-11.0); Neutrophils Percent Auto 72.8 % (42.0-72.0); Platelet Count* 245 K/uL (140-440); RDW Coefficient of Variation % 12.9 % (11.5-15.5); Red Blood Count 3.63 m/uL (4.00-5.20); White Blood Count* 7.74 K/uL (4.50-11.00)
[2022-05-21 07:26] LABS: Slide Review Reflex No
[2022-05-21 07:46] VITALS: BP 153/67; PULSE 52; PULSE 53; RESP 16; TEMP 37.1; O2SAT 97
[2022-05-21 07:49] LABS: Chloride* 101 mmol/L (96-114); Potassium* 3.7 mmol/L (3.6-5.1); Sodium* 134 mmol/L (135-149)
[2022-05-21 07:52] LABS: Carbon Dioxide* 30 mmol/L (20-32); Creatinine* 1.2 mg/dL (0.5-1.5); Estimated Glomerular Filt Rate 46.62
[2022-05-21 07:53] LABS: Blood Urea Nitrogen* 14 mg/dL (7-30); Calcium* 8.7 mg/dL (8.4-10.6); Glucose* 106 mg/dL (60-115)
--- NOTE | 2022-05-21 11:48 | P.DS_ITS ---
DS: Providers Provider Time Seen by Provider: 11:48 Date Seen: 05/21/22 Date of admission: 05/20/22 19:25 Primary care physician: Not a Local Provider Admitting Clinician: Pro Catalan MD Consults: Dr. John, general surgery Attending Physician on discharge: Pro Catalan MD Date of Discharge: 05/21/22 DS: Diagnosis Discharge Diagnosis (1) Hernia, hiatal: Status: Acute Problem details: Hiatal hernia was suspected to be the cause of intractable vomiting and abdominal pain. Hiatal hernia shows most of the stomach and the splenic flexure of the colon are above the diaphragm. There was a question of intermittent volvulus or obstruction. Symptoms resolved without specific therapy. She was able to return to a normal diet. Recommend outpatient surgical follow-up (2) Abdominal pain: Status: Acute Problem details: resolved (3) Intractable nausea and vomiting: Status: Acute Problem details: resolved (4) Bradycardia: Status: Acute Problem details: resolved after discontinuation of atenolol. Follow up with primary care in the next week DS: Summary Hospital Course Hospital Course: 77-year-old female admitted to the hospital with abrupt onset of epigastric abdominal pain and dry heaves. Symptoms were relatively severe and persistent over the for several hours but then resolved. Evaluation included CT of the abdomen which showed large hiatal hernia with most of the stomach and the splenic flexure of the colon in the chest but not obstructed. Abdominal ultrasound showed no right upper quadrant abnormalities. She was treated with pain medication, IV fluids and antiemetics and resolved her symptoms. She was able to return to a normal diet without difficulty. It was suspected that she had intermittent obstruction related to her hiatal hernia. She was seen in consultation with Dr. John, general surgeon, who recommended outpatient general surgery consult for possible surgery on her hiatal hernia Time Spent with Patient Time attestation: Total time spent providing and/or coordinating discharge services: Time spent: Greater than 30 minutes Exam Narrative: Exam Narrative: she is alert and appears in no distress. Respirations are clear to auscultation. Cardiovascular: S1, S2, regular rate and rhythm. Abdomen is soft without tenderness or mass. Bowel sounds are active. Const: Vital Signs, click to edit/add: Vital Signs - 24 hr 05/20/22 14:00 05/20/22 15:00 05/20/22 20:41 Temperature 97.6 F 98.2 F Pulse Rate 56 L Pulse Rate [Right Pulse Oximeter] 54 L 56 L 57 L Respiratory Rate 18 16 Blood Pressure [Le ft Arm] 134/61 128/53 L Pulse Oximetry 93 98 05/20/22 23:00 05/21/22 02:54 05/21/22 07:46 Temperature 99.1 F 98.1 F 98.8 F Pulse Rate 42 L 53 L Pulse Rate [Right Pulse Oximeter] 59 L 62 52 L Respiratory Rate 16 16 16 Blood Pressure [Le ft Arm] 129/62 142/59 H 153/67 H Pulse Oximetry 96 94 97 Documenting provider has reviewed patient's vital signs: yes DS: Data Data Completed and Pending Labs on day of discharge: Labs from last 24 hours 05/21/22 05/21/22 06:12 06:12 WBC 7.74 RBC 3.63 L Hgb 11.5 L Hct 35.9 MCV 99 MCH 32 MCHC 32 RDW Coeff of Alberto 12.9 Plt Count 245 Neut % (Auto) 72.8 H Lymph % (Auto) 16.5 L [place] % (Auto) 9.2 Eos % (Auto) 0.8 Baso % (Auto) 0.4 Neut # (Auto) 5.60 Lymph # (Auto) 1.30 [place] # (Auto) 0.70 Eos # (Auto) 0.06 Baso # (Auto) 0.03 Abs Immat Gran (auto) 0.02 Sodium 134 L Potassium 3.7 Chloride 101 Carbon Dioxide 30 BUN 14 Creatinine 1.2 Estimated Creat Clear 33.90 Glucose 106 Calcium 8.7 Preliminary micro results at discharge 05/20/22 03:45 Urine Culture - Preliminary Urine,Clean Catch NO GROWTH AFTER 24 HOURS Discharge Plan Discharge Disposition: Home, Self-Care Date of Admission: 05/20/22 19:25 Consulting Providers: Derek John Primary Care Provider: Provider,Not a Local Condition: Improved Anticipated Discharge Date/Time: 05/21/22 11:30 Discharge Medications: New omeprazole 20 mg Capsule,Delayed Release(Dr/Ec) 20 mg PO DAILY@0700 Qty: 30 0RF Continued atorvastatin 40 mg tablet 40 mg PO HS 0RF trazodone 50 mg tablet 50 mg PO HS 0RF leflunomide 10 mg tablet 10 mg PO DAILY 0RF triamterene-hydrochlorothiazid 37.5-25 mg tablet 1 tab PO DAILY 0RF glucosamine-chondroitin [Osteo Bi-Flex] 250-200 mg tablet 2 tab PO TID 0RF Rx Instructions: give after food/meal omega-3 fatty acids 1,000 mg capsule 1,000 mg PO DAILY 0RF coenzyme Q10 200 mg capsule 200 mg PO DAILY 0RF calcium carbonate-vitamin D3 200 mg (500 mg) -400 unit tablet 1 tab PO DAILY 0RF Discontinued atenolol 50 mg tablet 50 mg PO HS 0RF famotidine [Pepcid AC] PO 0RF Discharge Orders: Discharge Order (Routine); Ordered 05/21/22 Ordered By: Pro Catalan Patient Education: Hiatal Hernia (GEN) Activity Restrictions/Additional Instructions: If you get a recurrence of severe abdominal pain and dry heaves, return to the emergency department. Contact your doctor next week for an appointment with a general surgeon to evaluate you for surgery for your hiatal hernia. Activity Level: No Restrictions Discharge Diet: Regular Follow Up Appointments: Provider,Not a Local [Primary Care Provider] - ( Dr. Chamberlain at [facility]) Forms: MyHealth Info Instructions Discharge Comment: Follow-up with Dr. Chamberlain in [place]
[2022-05-21 11:55] VITALS: BP 166/70; PULSE 55; RESP 16; TEMP 37.1; O2SAT 98
--- NOTE | 2022-05-21 14:43 | PC.NURSE ---
Pt. feeling much better compared to yesterday. Notes mild nausea occasionally but passes w/out intervention. Abdominal pain similar. Declined need for medication this morning. IV found to be infiltrated & tender in right hand, removed, wrapped in blanket and elevated. No issues rest of shift. Tolerated advancing diet w/out issue or pain. D/C information discussed, all questions answered and papers signed/returned to chart. Pt. left med/surg unit @ 1310 w/spouse and belongings.
== END 2022-05-21 13:10 | disposition home or self-care (01) | DRG 392 ==
LOC: ED 04:56 → MEDSURG 05:30
PROVIDERS: Admitting Provider Family Medicine; Emergency Provider Family Medicine; Visit Provider Family Medicine
DX: K44.0 Diaphragmatic hernia with obstruction, without gangrene (principal); R11.2 Nausea with vomiting, unspecified; R10.9 Unspecified abdominal pain; K21.9 Gastro-esophageal reflux disease without esophagitis; R00.1 Bradycardia, unspecified; Z86.718 Personal history of other venous thrombosis and embolism; I00 Rheumatic fever without heart involvement; I73.00 Raynaud's syndrome without gangrene; I10 Essential (primary) hypertension; M46.90 Unspecified inflammatory spondylopathy, site unspecified; E78.5 Hyperlipidemia, unspecified
CPT/HCPCS: 36415; 71046; 74176; 76705; 80048; 80076; 81001; 83605; 83690; 84484; 85025; 87086; 87502; 87635; 93005; 93308; 99285; G0378; A9270; C9113; J0780; J1170; J1650; J2405; J7120

== ENCOUNTER 2025-01-16 07:22 | Day surgery (SDC) | payer MEDICARE, OTHER, SELFPAY ==
[2025-01-16] VITALS (21 sets, daily range): BP systolic 107–149; BP diastolic 57–89; PULSE 48–78; RESP 12–20; TEMP 35.9–36.9; O2SAT 92–100; BMI 26.4
--- OUTSIDE RECORDS SUMMARY | 2025-01-16 07:30 | XMS_ITS | Clinical Summary ---
Author Organization [facility] Address [address] [place] [id number] Care Team Providers Care Aviation Electronics Technician Name Role Phone Mandi Chamberlain MD Primary Care Provider [phone] Allergies Active Allergy Reactions Criticality Noted Date Comments Diclofenac Other (See Comments) 12/17/2007 stomach Medications famotidine (PEPCID) 20 MG tablet Take 1 tablet (20 mg) by mouth 2 times daily 30 tablet 05/23/2022 Active sucralfate (CARAFATE) 1 GM/10ML suspension Take 10 mLs (1 g) by mouth 4 times daily 414 mL 05/23/2022 Active Social History Tobacco Use Types Packs/Day Years Used Date Smoking Tobacco: Never Assessed Adolescent Education Answer Date Record ed Getting School Help Needed Not on file 08/21 Comments No Sex and Gender Information Value Date Recorded Sex Assigned at Not on file Legal Sex Female 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 Gender Identity Not on file Sexual Orientation Not on file Last Filed Vital Signs Vital Sign Reading Time Taken Comments Blood Pressure 154/72 05/23/2022 2:00 PM CDT Pulse 52 05/23/2022 2:00 PM CDT Temperature 36.4 C (97.6 F) 05/23/2022 11:53 AM CDT Respiratory Rate 18 05/23/2022 11:53 AM CDT Oxygen Saturation 94% 05/23/2022 2:25 PM CDT Inhaled Oxygen Concentration - - Weight 63.5 kg (140 lb) 05/23/2022 11:53 AM CDT Height - - Body Mass Index - - Plan of Treatment Health Maintenance Due Date Last Done Comments ADVANCE CARE PLANNING 1945 ANNUAL REVIEW OF HM ORDERS 1945 HEPATITIS C SCREENING 1963 LIPID 1985 ZOSTER IMMUNIZATION (2 of 3) 12/25/2009 10/30/2009 FALL RISK ASSESSMENT 2010 MEDICARE ANNUAL WELLNESS VISIT 05/03/2014 05/03/2013, 09/28/2011, 09/30/2010, Additional history exists RSV VACCINE (1 - 1-dose 75+ series) 2020 COVID-19 Vaccine (4 - season) 2024 08/24/2021, 01/01/2021, 12/11/2020 INFLUENZA VACCINE (#1) 2024 9, 09/05/2018, 09/22/2017, Additional history exists PHQ-2 (once per calendar year) 2024 GLUCOSE 05/23/2025 05/23/2022 DTAP/TDAP/TD IMMUNIZATION (3 - Td or Tdap) 10/10/2027 10/10/2017, 01/25/2007, 12/30/1996 DEXA 04/21/2037 04/21/2022 Pneumococcal Vaccine: 50+ Years Completed 09/07/2016, 08/08/2013, 03/15/2010 HPV IMMUNIZATION Aged Out No longer e ligible based on patient's age to complete this topic MENINGITIS IMMUNIZATION Aged Out No l onger eligible based on patient's age to complete this topic Procedures Procedure Name Priority Date/Time Associated Diagnosis Comments COMPREHENSIVE METABOLIC PANEL STAT 05/23/2022 12:41 PM CDT from Last 3 Months or Most Recently Relevant to Health Maintenance Results * (ABNORMAL) Comprehensive metabolic panel (05/23/2022 12:41 PM CDT) Sodium 133 133 - 144 mmol/L 05/23/2022 1:10 PM CDT [facility] Potassium 3.5 3.4 - 5.3 mmol/L 05/23/2022 1:10 PM CDT [facility] Chloride 93(L) 94 - 109 mmol/L 05/23/2022 1:10 PM CDT [facility] Carbon Dioxide (CO2) 27 20 - 32 mmol/L 05/23/2022 1:10 PM CDT [facility] Anion Gap 13 3 - 14 mmol/L 05/23/2022 1:10 PM CDT [facility] Urea Nitrogen 18 7 - 30 mg/dL 05/23/2022 1:10 PM CDT [facility] Creatinine 1.25(H) 0.52 - 1.04 mg/dL 05/23/2022 1:10 PM CDT [facility] Calcium 8.8 8.5 - 10.1 mg/dL 05/23/2022 1:10 PM CDT [facility] Glucose 86 70 - 99 mg/dL 05/23/2022 1:10 PM CDT [facility] Alkaline Phosphatase 51 40 - 150 U/L 05/23/2022 1:10 PM CDT [facility] AST 113(H) 0 - 45 U/L 05/23/2022 1:10 PM CDT [facility] ALT 44 0 - 50 U/L 05/23/2022 1:10 PM CDT [facility] Protein Total 7.1 6.8 - 8.8 g/dL 05/23/2022 1:10 PM CDT [facility] Albumin 3.6 3.4 - 5.0 g/dL 05/23/2022 1:10 PM CDT [facility] Bilirubin Total 0.8 0.2 - 1.3 mg/dL 05/23/2022 1:10 PM CDT [facility] GFR Estimate 44(L) >60 mL/min/1.7 3m2 05/23/2022 1:10 PM CDT [facility] Comment:Effective October 212020 eGFRcr in adults is calculated using the 2020 CKD-EPI creatinine equation which includes age and gender (Lyubov et al., NEJM, DOI: 10.1056/AHKMgz3497476) Blood STRUCTURE OF RIGHT UPPER LIMB / Unknown Venipuncture / Unknown 05/23/2022 12:41 PM CDT 05/23/2022 12:46 PM CDT us Skinny Monroy MD LAB - BLOOD ORDERABLES Fi nal Result [facility] [address] Lab (1st floor, no room number) [place] [address] [phone] from Last 3 Months or Most Recently Relevant to Health Maintenance Insurance [facility] Care Teams Aviation Electronics Technician Relationship Specialty [place] [address] [place] [address] PCP - General Family Medicine 05/23/22
[2025-01-16] MEDS: SODIUM CHLORIDE 0.9 % (FLUSH) 10 ML SYRINGE IVF (08:15)
[2025-01-16] MEDS: LACTATED RINGERS 1000 ML 1,000 ML 100 ML IV ×2 (08:15→10:31)
[2025-01-16] MEDS: ACETAMINOPHEN 500 MG TABLET 1000 MG PO ×3 (08:24→20:23)
[2025-01-16] MEDS: CELECOXIB 200 MG CAPSULE PO (08:25)
[2025-01-16] MEDS: MIDAZOLAM HCL 1 MG/ML inj IVP (08:48)
--- NOTE | 2025-01-16 08:48 | SUR.PREOP ---
TIME?OUT:?0845, right knee PT/RN/MDA?VERIFICATION?OF?SURGICAL?SITE,?PROCEDURE,?AND?CONSENT OBTAINED?PRIOR?TO?INVASIVE?PROCEDURE.
--- NOTE | 2025-01-16 08:51 | W.PM.NB ---
Nerve Block Nerve Block Time Seen by Provider: 08:45 Date Seen: 01/16/25 Type of block requested by surgeon for post-operative analgesia: adductor canal Side: right Time out performed: Yes Verification of patient name: Yes Verification of date of : Yes Site marking: site marked Name of person performing procedure: Sammy Continuous monitoring Was continuous monitoring of O2 sat, B/P, quality assurance monitor body, recorded every 15 minutes?: Yes Procedure Checklist: sterile prep, needles and gloves Ultrasound guided. Images saved: Yes Medications given in 5ml increments after negative aspiration: Marcaine %: 0.25 mL: 15 Needle gauge: 20 Precedex (mcg): 25 Patient tolerated procedure well: Yes Block Charges Block Charge (with Pro Fee): Femoral Nerve Use of Ultrasound Machine for Block: Yes- US Guidance/pain block
--- NOTE | 2025-01-16 08:52 | W.PM.NB ---
Nerve Block Nerve Block Time Seen by Provider: 08:45 Date Seen: 01/16/25 Type of block requested by surgeon for post-operative analgesia: geniculars Side: right Time out performed: Yes Verification of patient name: Yes Verification of date of : Yes Site marking: site marked Name of person performing procedure: Sammy Continuous monitoring Was continuous monitoring of O2 sat, B/P, foot press operator, recorded every 15 minutes?: Yes Procedure Checklist: sterile prep, needles and gloves Ultrasound guided. Images saved: Yes Medications given in 5ml increments after negative aspiration: Marcaine %: 0.25 mL: 9 Needle gauge: 25 Patient tolerated procedure well: Yes Block Charges Block Charge (with Pro Fee): Genicular Nerve Block
--- NOTE | 2025-01-16 08:52 | W.ANESCHARGE ---
Anesthesia Charges Start Date/Time Anesthesia Start Date: 01/16/25 Anesthesia Start Time: 09:07 Stop Date/Time Anesthesia Stop Date: 01/16/25 Anesthesia Stop Time: 10:56 Summary Extremes of Age - Over 70 or under 1: MDA Coding CPT Codes CPT Codes: ANESTH KNEE ARTHROPLASTY - 76643 ([id number]) P2 - PATIENT W/MILD SYST DISEASE, QK - CHECK EXAMINER 2-4 CNCRNT ANES PROC, QX - MARINE PAINTER SVC W/ MD MED DIRECTION Additional Codes: Summary - Extremes of Age - Over 70 or under 1: MDA ([id number])
[2025-01-16] MEDS: CEFAZOLIN 2 GM INJ IVP (09:20)
[2025-01-16] MEDS: TRANEXAMIC ACID 100 MG/ML INJ 1000 MG IV (09:20)
--- NOTE | 2025-01-16 10:27 | PM.ORPRC ---
Procedure Note Date of procedure: 01/16/25 Procedure: PREOPERATIVE DIAGNOSIS: Right knee osteoarthritis POSTOPERATIVE DIAGNOSIS: Right knee osteoarthritis NAME OF OPERATION: Right total knee arthroplasty SURGEON: Partha Serna MD STATISTICAL ANALYST: CALEB Willson ANESTHESIA: Spinal ESTIMATED BLOOD LOSS: 0 mL COMPLICATIONS: None SPECIMENS: None DRAINS: None PREOPERATIVE ANTIBIOTICS: Ancef 1 g IMPLANTS: 1. J&J Attune # 5 posterior stabilized femur 2. # 5 fixed-bearing tibia 3. # 5 posterior stabilized, 5 mm fixed-bearing polyethylene 4. 38 patella INDICATIONS: The patient is a 79-year-old with a longstanding history of severe, unrelenting right knee pain secondary to end-stage (grade IV) right knee osteoarthritis. Despite appropriate nonoperative management, including activity modification, anti-inflammatories, qsyi-[id number] pain medication, bracing, physical therapy, and injections they continue to have pain and disability. Operative intervention was offered. The risks, benefits and expected outcomes were discussed in detail. These included but were not limited to: Infection, bleeding, injury to blood vessel or nerve, venous thromboembolism. All questions were answered to their satisfaction. Use of an assistant women's basketball coach was necessary throughout the case for patient positioning and safety, soft tissue retraction, and closure. PROCEDURE: Spinal anesthesia was administered. The patient was placed supine on the operating table. The assistant women's basketball coach made sure the patient was positioned appropriately. The lower extremity was prepped and draped in the usual sterile fashion. The limb was exsanguinated with the Sagar bandage. The pneumatic tourniquet was inflated to 300 mmHg. A standard anterior incision was made with the knee in flexion. Subcutaneous dissection was sharply taken through fascial layer #1. Full-thickness medial and lateral flaps were elevated. The assistant women's basketball coach retracted the soft tissues and protected them throughout the case. A standard subvastus approach was made. The patella was subluxed. The infrapatellar fat pad was preserved. The menisci and cruciate ligaments were sharply d?brided. Marginal osteophytes were d?brided with the rongeur. The drill was used to penetrate the femoral canal. The canal was aspirated and irrigated with pulse lavage. The intramedullary femoral guide was placed for a 5-degree valgus cut, removing 10 mm off the distal femur. The saw was used to make the cut. Whitesides line and the trans epicondylar axis were marked. The femoral sizing guide was pinned onto the distal femur. Three degrees of external rotation nicely parallels the transepicondylar axis. Pins were placed for posterior referencing. The four-in-one cutting guide was pinned onto the distal femur. The anterior, posterior, and chamfer cuts were made. The assistant women's basketball coach protected the collateral ligaments. The box cutting guide was pinned. The box cuts were made. The boxed trial was placed and was an excellent fit. Drill holes for the lugs were made. The revision trial was placed. The box cuts were made. The drill was used x2. The stemmed, boxed trial was placed and was an excellent fit. Attention was then turned to the proximal tibia. The extramedullary tibial guide was placed for a neutral varus/valgus cut with 5 degrees of posterior slope, removing 2 mm based off the medial tibial surface. The assistant women's basketball coach protected the collateral ligaments and the neurovascular bundle. The saw was used to make the cut. Trial components were placed. The knee was nicely balanced in both flexion and extension. The trial components were removed. The tray was placed in appropriate rotation, parallel to our tibial cutting pins. It was pinned by the assistant women's basketball coach and the drill and the punch were used. The tray was removed. The punch was used again. We placed a bone plug in the femoral canal.The trial components were removed. The tray was placed in appropriate rotation, parallel to our tibial cutting pins. It was pinned by the assistant women's basketball coach and the drill x2 was used. The stemmed tibial trial was placed. The punch was used. The tray was removed. The punch was used again. Attention was then turned to the patella. [place] patellar thickness was 24 mm. The lobster claw resection guide was used with the 9.5 mm milvia. The saw was used to make the cut. Drill holes were made by the assistant women's basketball coach. The trial was placed and was an excellent fit. Cancellous surfaces were irrigated with pulse lavage and thoroughly dried by the assistant women's basketball coach. We cemented the tibial component, then the femoral component. We impacted the 5 mm polyethylene onto the tibial tray. The knee was brought into full extension. We then cemented the patellar component. Excessive cement was removed. The cement was allowed to harden. The knee was taken through a range of motion and was found to be nicely balanced in both flexion and extension. The patella tracks centrally. The assistant women's basketball coach did a three minute dilute Betadine solution soak. The assistant women's basketball coach irrigated the wound with 3 liters of normal saline via pulse lavage. The assistant women's basketball coach reapproximated the extensor mechanism with #1 Vicryl in an interrupted [id number]-rn-drlsf fashion. The assistant women's basketball coach then ran the extensor mechanism with a #1 PDO Stratafix. The assistant women's basketball coach closed the subcutaneous tissues with a 3-0 Stratafix and the skin with a running 3-0 Stratafix in a subcuticular fashion. Glue was used to seal the skin. The assistant women's basketball coach placed a dry dressing. Sponge and needle counts were correct x2. The patient tolerated the procedure well. There were no apparent complications. They were carefully transferred to the hospital bed and taken to the postanesthesia care unit in satisfactory condition. PLAN: The patient will be mobilized with physical therapy. Aspirin will be used for DVT prophylaxis. They will be discharged to home once medically appropriate.
--- NOTE | 2025-01-16 10:57 | W.ANESCHARGE ---
Anesthesia Charges Start Date/Time Anesthesia Start Date: 01/16/25 Anesthesia Start Time: 09:07 Stop Date/Time Anesthesia Stop Date: 01/16/25 Anesthesia Stop Time: 10:56 Summary Extremes of Age - Over 70 or under 1: MARINE STEAM FITTER Coding CPT Codes CPT Codes: ANESTH KNEE ARTHROPLASTY - 20717 ([id number]) P2 - PATIENT W/MILD SYST DISEASE, QX - MARINE STEAM FITTER SVC W/ MD MED DIRECTION, QK - DEMAND MANAGER 2-4 CNCRNT ANES PROC Additional Codes: Summary - Extremes of Age - Over 70 or under 1: MARINE STEAM FITTER ([id number])
[2025-01-16] MEDS: OXYCODONE 5 MG TABLET PO ×4 (12:51→22:48)
--- NOTE | 2025-01-16 14:16 | PC.NURSE ---
End of Shift Note: Patient arrived to the floor around 1200. She is alert and orientated x4 no complaints of nausea has tolerated clear liquids. Her pain was starting to increase pain medications given see MAR. Will continue to monitor until next shift arrives.
--- NOTE | 2025-01-16 14:32 | PM.IMCN1 ---
Date of Consult Patient: Other Consult date: 01/16/25 Requesting Physician: Orthopedics Primary Care Provider: Not a Local Provider Consult Narrative Narrative: Moni Hdez is a 79 year old female admitted to the hospital for right total knee arthroplasty. Procedures performed by Dr. Serna. There were no complications. He request consultation for management of perioperative medical problems. Patient is generally doing well postoperatively. She is having manageable knee pain. No nausea or dyspnea or chills. She reports she has been feeling well recently. No other active medical concerns. She reports having a preoperative physical examination with Dr. Chamberlain and the only concern identified at that time was possibly elevated blood pressure. Possibly she also had her atenolol discontinued at that time. Details of this interaction are not currently available. She has had a previous surgery. When she had left knee arthroplasty she had significant problems with nausea and vomiting afterwards. Not currently experiencing the side effects. No history of thrombophilia or bleeding. Review of Systems Narrative: She reports generally she has been doing well. She has some tendency to constipation for which she takes extra fiber in her diet. [facility] Medical History (Updated 01/16/25 @ 14:55 by Pro Catalan MD) History of postoperative nausea and vomiting ?Z87.898 - Personal history of other specified conditions (ICD-10) Sensorineural hearing loss ?H90.5 - Unspecified sensorineural hearing loss (ICD-10) Hx SBO ?Z87.19 - Personal history of other diseases of the digestive system (ICD-10) Generalized osteoarthritis ?M15.9 - Polyosteoarthritis, unspecified (ICD-10) Raynaud phenomenon ?I73.00 - Raynaud's syndrome without gangrene (ICD-10) DVT (deep venous thrombosis) ?I82.409 - Acute embolism and thrombosis of unspecified deep veins of unspecified lower extremity (ICD-10) Inflammatory spondylopathy ?M46.90 - Unspecified inflammatory spondylopathy, site unspecified (ICD-10) Anemia ?D64.9 - Anemia, unspecified (ICD-10) Hyperlipidemia ?E78.5 - Hyperlipidemia, unspecified (ICD-10) Polyarthritis rheumatica ?M06.9 - Rheumatoid arthritis, unspecified (ICD-10) Arthritis ?M19.90 - Unspecified osteoarthritis, unspecified site (ICD-10) Osteoporosis ?M81.0 - Age-related osteoporosis without current pathological fracture (ICD-10) GERD (gastroesophageal reflux disease) ?K21.9 - Gastro-esophageal reflux disease without esophagitis (ICD-10) Elevated cholesterol ?E78.00 - Pure hypercholesterolemia, unspecified (ICD-10) Hypertension ?I10 - Essential (primary) hypertension (ICD-10) Surgical History (Updated 01/16/25 @ 14:49 by Pro Catalan MD) S/P total knee arthroplasty ?Z96.659 - Presence of unspecified artificial knee joint (ICD-10) History of exploratory laparotomy ?Z98.890 - Other specified postprocedural states (ICD-10) H/O blepharoplasty ?Z98.890 - Other specified postprocedural states (ICD-10) H/O tubal ligation ?Z98.51 - Tubal ligation status (ICD-10) History of left knee replacement (12/03/15) ?Z96.652 - Presence of left artificial knee joint (ICD-10) History of appendectomy ?Z90.49 - Acquired absence of other specified parts of digestive tract (ICD-10) Family History (Updated 01/16/25 @ 14:43 by Pro Catalan MD) Father Dementia Mother Coronary artery disease Brother Coronary artery disease Social History (Updated 01/16/25 @ 14:45 by Pro Catalan MD) Narrative: She lives with her Ori in [place]. They live in a town home. They live on 1 level. They have 2 steps to get into the house from the garage. She does not smoke. She does not drink alcohol. is healthcare power of health care attorney. Code status is full. What is your current living situation?: I presently have a place to live In the past 12 months, utilities in danger of being shut off: no In past 12 months, lack of transportation kept you from medical appts, meetings, work, or getting things needed for daily living: no In the past 12 mos, have been you worried that your food would run out before you had money to buy more?: never true In the past 12 mos, the food you bought just didn't last and you didn't have money to buy more?: never true Smoking Status: Never smoker Do you use any of these nicotine containing products: None Second hand tobacco smoke exposure: No How often do you have a drink containing alcohol: never AUDIT-C Alcohol total score: 0 Non-prescribed substance use: denies use Caffeine: Yes (1-2 cup coffee) How often does anyone, including family, friends and others, physically hurt you: never How often does anyone, including family, friends and others, insult or talk down to you: never How often does anyone, including family, friends and others, threaten you with harm: never How often does anyone, including family, friends and others, scream or curse at you: never service: No Meds Home Medications and Allergies Home Medications ?Medication ?Instructions ?Recorded ?Confirmed ?Type atorvastatin 40 mg tablet 40 mg PO HS 05/20/22 01/16/25 History calcium carbonate 200 mg calcium 1 tab PO DAILY 05/20/22 01/16/25 History (500 mg)-vitamin D3 400 unit tablet coenzyme Q10 200 mg capsule 200 mg PO DAILY 05/20/22 01/16/25 History glucosamine-chondroitin 250 mg-200 2 tab PO TID 05/20/22 01/16/25 History mg tablet (Osteo Bi-Flex) leflunomide 10 mg tablet 10 mg PO DAILY 05/20/22 01/16/25 History omega-3 fatty acids 1,000 mg 1,000 mg PO DAILY 05/20/22 01/16/25 History capsule trazodone 50 mg tablet 50 mg PO HS 05/20/22 01/16/25 History triamterene 37.5 1 tab PO DAILY 05/20/22 01/16/25 History mg-hydrochlorothiazide 25 mg tablet atenolol 50 mg tablet 50 mg PO DAILY 12/23/24 01/16/25 History Home Medication Comments: No longer taking leflunomide or atenolol Allergies Allergy/AdvReac Type Severity Reaction Status Date / Time diclofenac Allergy Unknown Verified 01/16/25 07:41 Exam Narrative: Exam Narrative: She is alert and appears in no distress. She is hard of hearing. She gives history along with her . She is oriented to her circumstances. Head is without trauma. Eyes normal. Oropharynx is normal. Neck is supple without mass or adenopathy. No jugular venous distension. Respirations are clear to auscultation. Breathing is unlabored. Cardiovascular: S1, S2, regular rate and rhythm. Abdomen is soft without tenderness or mass. She moves all 4 extremities well. She has intact sensation all 4 extremities and intact pedal pulses in her feet. Right knee incision is covered by add dressing. No significant erythema swelling or bruising. No edema. Const: Vital Signs, click to edit/add: Vital Signs - 24 hr 01/16/25 08:05 01/16/25 08:45 01/16/25 08:50 Temperature 98.0 F Pulse Rate 73 73 57 L Respiratory Rate 20 20 20 Blood Pressure 143/70 H 144/75 H 147/66 H Pulse Oximetry 95 99 99 Oxygen Delivery Me thod Room Air Nasal Cannula Nasal Cannula Oxygen Flow Rate 2 2 01/16/25 09:00 01/16/25 10:55 01/16/25 11:00 Temperature 97.1 F L Pulse Rate 55 L 54 L 49 L Respiratory Rate 20 12 12 Blood Pressure 134/63 107/57 L 113/60 Pulse Oximetry 99 96 97 Oxygen Delivery Me thod Nasal Cannula Room Air Room Air Oxygen Flow Rate 2 01/16/25 11:05 01/16/25 11:10 01/16/25 11:15 Temperature Pulse Rate 48 L 55 L 53 L Respiratory Rate 12 14 14 Blood Pressure 115/68 122/65 130/73 Pulse Oximetry 96 95 94 Oxygen Delivery Me thod Room Air Room Air Room Air Oxygen Flow Rate 01/16/25 11:20 01/16/25 11:25 01/16/25 11:38 Temperature 98.4 F 96.6 F L Pulse Rate 52 L 53 L 54 L Respiratory Rate 13 16 18 Blood Pressure 121/63 128/67 140/72 H Pulse Oximetry 93 93 92 Oxygen Delivery Me thod Room Air Room Air Room Air Oxygen Flow Rate 01/16/25 11:45 01/16/25 12:00 01/16/25 12:15 Temperature 96.6 F L 96.6 F L 96.6 F L Pulse Rate 52 L 55 L 72 Respiratory Rate 18 18 18 Blood Pressure 134/68 133/70 139/71 Pulse Oximetry 93 95 94 Oxygen Delivery Me thod Room Air Room Air Room Air Oxygen Flow Rate 01/16/25 13:24 Temperature 96.6 F L Pulse Rate 57 L Respiratory Rate 20 Blood Pressure 149/83 H Pulse Oximetry 100 Oxygen Delivery Me thod Room Air Oxygen Flow Rate Documenting provider has reviewed patient's vital signs: yes Assessment and Plan Assessment and plan (1) S/P total knee arthroplasty: Problem comment: Right knee Status: Acute (2) History of postoperative nausea and vomiting: Problem comment: Previous problems with this including after her left knee arthroplasty. Doing well so far after right knee arthroplasty Status: Acute (3) Bradycardia: Problem comment: resolved after discontinuation of atenolol. Status: Acute (4) DVT (deep venous thrombosis): Problem comment: had DVT on hormone replacement therapy. Plan routine VTE prophylaxis after knee surgery Status: Acute (5) Hypertension: Problem comment: reports her primary care provider may have concerns about hypertension. This can be addressed as an outpatient. Status: Acute Plan 79-year-old female admitted to the hospital for right total knee arthroplasty. She is generally doing well. Not having significant problems with her history of postoperative nausea and vomiting or remote history of DVT. Continue to monitor for those conditions. Continue to monitor blood pressure with history of hypertension. Anticipate routine management of pain, therapy and discharge to home with tomorrow Total Time Spent Total Time Spent: Total time spent today is 35 minutes in coordination of care, reviewing outside records and discussing with patient and ongoing evaluation management of medical problems in the context of knee arthroplasty
[2025-01-16] MEDS: CEFAZOLIN 1 GM in 0.9 % SODIUM CHLORIDE Mini-bag 100 ML IVPB (16:28)
[2025-01-16] MEDS: ASPIRIN 81 MG TABLET EC PO (20:23)
[2025-01-16] MEDS: SENNOSIDES 1 TAB TABLET 2 TAB PO (20:23)
[2025-01-16] MEDS: TRAZODONE HCL 50 MG TABLET PO (20:24)
[2025-01-16] MEDS: ATORVASTATIN CALCIUM 40 MG TABLET PO (20:24)
--- NOTE | 2025-01-16 23:22 | PC.NURSE ---
End of Shift: Patient pleasant and cooperative. Afebrile. Dressing to right knee C/D/I. CMS intact. Rating pain up to 5-8/10 and PRN Oxycodone given x2. Up to chair and bathroom with SBA, walker and gait belt. Tolerating regular diet with no nausea.
[2025-01-17 00:21] VITALS: BP 146/80; PULSE 71; RESP 16; TEMP 36.6; O2SAT 96
[2025-01-17] MEDS: CEFAZOLIN 1 GM in 0.9 % SODIUM CHLORIDE Mini-bag 100 ML IVPB (00:29)
[2025-01-17 02:40] VITALS: BP 131/77; PULSE 71; RESP 16; TEMP 36.6; O2SAT 98
[2025-01-17] MEDS: OXYCODONE 5 MG TABLET PO ×2 (02:45→06:37)
[2025-01-17] MEDS: ACETAMINOPHEN 500 MG TABLET 1000 MG PO ×2 (02:45→10:10)
--- NOTE | 2025-01-17 06:13 | PC.NURSE ---
Pt is alert and oriented x3. Afebrile. Pt reports 4-5/10 pain in right knee, managed with cold pack and scheduled and PRN medications. Pt?s right knee dressing is CDI. Pt is up SBA with walker and gait belt, voiding, passing gas and tolerating a regular diet. Pt up sitting in recliner watching tv, chair alarm on.
[2025-01-17 06:32] LABS: Hematocrit 36.1 % (33.0-51.0); Hemoglobin* 11.6 gm/dL (12.0-16.0); Immature Granulocytes Abs Auto 0.02 K/uL (0.00-0.30); Immature Granulocytes Pct Auto 0.2 %; Mean Corpuscular HGB Conc 32 gm/dL (32-36); Mean Corpuscular Hemoglobin 31 pg (26-34); Mean Corpuscular Volume 96 fL (80-100); Monocytes Percent Auto 12.6 % (0.0-11.0); Neutrophils Percent Auto 76.2 % (42.0-72.0); Platelet Count* 276 K/uL (140-440); RDW Coefficient of Variation % 12.7 % (11.5-15.5); Red Blood Count 3.78 m/uL (4.00-5.20); White Blood Count* 9.95 K/uL (4.50-11.00)
[2025-01-17 06:44] LABS: Potassium* 4.6 mmol/L (3.6-5.1); Sodium* 130 mmol/L (135-149)
[2025-01-17 06:47] LABS: Blood Urea Nitrogen* 18 mg/dL (7-30); Creatinine* 1.3 mg/dL (0.5-1.5); Est. Creatinine Clearance* 29.03; Estimated Glomerular Filt Rate 42 ml/min
[2025-01-17 06:58] LABS: Slide Review Reflex No
[2025-01-17 07:00] VITALS: BP 142/66; PULSE 64; RESP 16; TEMP 36.8; O2SAT 97
--- NOTE | 2025-01-17 07:24 | PM.ORPN ---
Subjective Subjective Time Seen by Provider: 07:24 Date Seen: 01/17/25 Principal diagnosis: Post right knee replacement 01/16/2025 Interval history: Moni denies nausea, vomiting postoperatively. She has ambulated to the restroom and back. This went well. She plans to discharge to home with her today. Ortho Exam Narrative Exam Narrative: Alert and oriented x3. Patient is in no acute distress. Converses without labored breathing. Hearing is grossly intact. Ambulates with a Walker. Examination of the right knee shows the dressing is intact. Minimal soft tissue edema. No erythema or warmth or sign of infection. She is able to straight leg raise. Calves are soft nontender. Able to dorsiflex and plantar flex the ankles with ease. Const Vital Signs, click to edit/add: Vital Signs - 24 hr 01/16/25 08:05 01/16/25 08:45 01/16/25 08:50 Temperature 98.0 F Pulse Rate 73 73 57 L Pulse Rate [Right Pulse Oximeter] Respiratory Rate 20 20 20 Blood Pressure 143/70 H 144/75 H 147/66 H Blood Pressure [Left Arm] Pulse Oximetry 95 99 99 Oxygen Delivery Method Room Air Nasal Cannula Nasal Cannula Oxygen Flow Rate 2 2 01/16/25 09:00 01/16/25 10:55 01/16/25 11:00 Temperature 97.1 F L Pulse Rate 55 L 54 L 49 L Pulse Rate [Right Pulse Oximeter] Respiratory Rate 20 12 12 Blood Pressure 134/63 107/57 L 113/60 Blood Pressure [Left Arm] Pulse Oximetry 99 96 97 Oxygen Delivery Method Nasal Cannula Room Air Room Air Oxygen Flow Rate 2 01/16/25 11:05 01/16/25 11:10 01/16/25 11:15 Temperature Pulse Rate 48 L 55 L 53 L Pulse Rate [Right Pulse Oximeter] Respiratory Rate 12 14 14 Blood Pressure 115/68 122/65 130/73 Blood Pressure [Left Arm] Pulse Oximetry 96 95 94 Oxygen Delivery Method Room Air Room Air Room Air Oxygen Flow Rate 01/16/25 11:20 01/16/25 11:25 01/16/25 11:38 Temperature 98.4 F 96.6 F L Pulse Rate 52 L 53 L 54 L Pulse Rate [Right Pulse Oximeter] Respiratory Rate 13 16 18 Blood Pressure 121/63 128/67 140/72 H Blood Pressure [Left Arm] Pulse Oximetry 93 93 92 Oxygen Delivery Method Room Air Room Air Room Air Oxygen Flow Rate 01/16/25 11:45 01/16/25 12:00 01/16/25 12:15 Temperature 96.6 F L 96.6 F L 96.6 F L Pulse Rate 52 L 55 L 72 Pulse Rate [Right Pulse Oximeter] Respiratory Rate 18 18 18 Blood Pressure 134/68 133/70 139/71 Blood Pressure [Left Arm] Pulse Oximetry 93 95 94 Oxygen Delivery Method Room Air Room Air Room Air Oxygen Flow Rate 01/16/25 13:24 01/16/25 14:24 01/16/25 15:00 Temperature 96.6 F L 96.6 F L Pulse Rate 57 L 60 Pulse Rate [Right Pulse Oximeter] Respiratory Rate 20 20 Blood Pressure 149/83 H 147/68 H Blood Pressure [Left Arm] Pulse Oximetry 100 95 98 Oxygen Delivery Method Room Air Room Air Room Air Oxygen Flow Rate 01/16/25 15:00 01/16/25 16:00 01/16/25 17:00 Temperature 97.7 F 97.2 F L 97.2 F L Pulse Rate 56 L 65 78 Pulse Rate [Right Pulse Oximeter] Respiratory Rate 16 16 16 Blood Pressure 147/68 H 138/68 129/89 Blood Pressure [Left Arm] Pulse Oximetry 96 97 96 Oxygen Delivery Method Room Air Room Air Room Air Oxygen Flow Rate 01/16/25 18:00 01/17/25 00:21 01/17/25 00:21 Temperature 97.0 F L 97.8 F Pulse Rate 70 Pulse Rate [Right Pulse Oximeter] 71 Respiratory Rate 16 16 16 Blood Pressure 121/57 L Blood Pressure [Left Arm] 146/80 H Pulse Oximetry 96 96 96 Oxygen Delivery Method Room Air Room Air Room Air Oxygen Flow Rate 01/17/25 02:40 Temperature 97.8 F Pulse Rate Pulse Rate [Right Pulse Oximeter] 71 Respiratory Rate 16 Blood Pressure Blood Pressure [Left Arm] 131/77 Pulse Oximetry 98 Oxygen Delivery Method Room Air Oxygen Flow Rate Assessment and Plan Assessment and plan (1) S/P total knee arthroplasty: Problem details: Right knee Status: Acute Assessment and Plan: Plan for discharge is today to home if they meet discharge criteria. DVT prophylaxis includes aspirin 81 mg twice daily x1 month, Compression stockings as needed for swelling. Frequent ambulation, every hour throughout the day. Remove dressing in 1 week. Observe wound and phone Orthopedics with any questions or concerns Return to clinic in 1 week for a wound check Return to clinic in 6 weeks with surgeon Minimize narcotic use. Wean off and discontinue soon as possible. Activities as tolerated. No strenuous activity. Outpatient physical therapy as scheduled. Ice and elevate the operative extremity. No restriction on ice. Moni has a history of DVT while being on hormone replacement therapy in the past. She has had the other knee replaced in the past, [address] Manriquez. She took aspirin 325 b.i.d. at that time. After discussion with Dr. No, Standard Aspirin 81 mg bid is recommended. we discussed that swelling, bruising, pain may likely increase over this next week.
[2025-01-17 07:44] LABS: INR 0.95 (0.91-1.10); Prothrombin Time 13.5 Seconds
[2025-01-17] MEDS: TRIAMTERENE-HCTZ 37.5-25 MG TB 1 TAB PO (10:10)
[2025-01-17] MEDS: ASPIRIN 81 MG TABLET EC PO (10:10)
[2025-01-17] MEDS: SENNOSIDES 1 TAB TABLET 2 TAB PO (10:10)
--- NOTE | 2025-01-17 10:38 | PC.NURSE ---
Discharge-- Very pleasant and cooperative, alert and oriented but [facility] patient discharged to home via wheelchair with at approximately 1035. VSS and pt is afebrile. SPO2 maintained >90% on RA. Pain appears well managed with Tylenol and Oxycodone as needed. Dressing to right knee is C/D/I and CMS is WNL. LS CTA. She stated that she occasionally has mild nausea, but tolerated a regular breakfast without difficulty this morning. No post op BM yet but BS are + x4. Discharge education was provided including diagnosis info, symptoms to report, medications and follow up plan. All questions were answered and SL was removed with tip intact.
== END 2025-01-17 10:41 | disposition home or self-care (01) ==
LOC: OR 07:27 → MEDSURG 07:29
PROVIDERS: Visit Provider Orthopaedic Surgery
PROC: (CPT 27447; principal; 2025-01-16 08:45)
DX: M17.11 Unilateral primary osteoarthritis, right knee (principal); G89.18 Other acute postprocedural pain; R00.1 Bradycardia, unspecified; K21.9 Gastro-esophageal reflux disease without esophagitis; Z86.718 Personal history of other venous thrombosis and embolism; Z79.01 Long term (current) use of anticoagulants; M06.9 Rheumatoid arthritis, unspecified; I10 Essential (primary) hypertension; M81.0 Age-related osteoporosis without current pathological fracture; E78.5 Hyperlipidemia, unspecified; Z79.82 Long term (current) use of aspirin
CPT/HCPCS: 27447; 01402; 36415; 64447; 64454; 73560; 76942; 82565; 84132; 84295; 84520; 85025; 85610; 97110; 97116; 97161; 97165; 97530; 97535; 99100; A9270; C1776; J0665; J0690; J1100; J2250; J2405; J2704; J7120

== ENCOUNTER 2025-02-10 11:00 | Outpatient (RCR) | payer MEDICARE, OTHER, SELFPAY ==
--- NOTE | 2024-12-27 14:40 | PT.OPEX ---
PT [facility] PT [facility] Outpatient Eval Start: 12/27/24 07:24 Freq: Status: Active Protocol: Document 12/27/24 07:24 HLA (Rec: 12/27/24 14:37 HLA [id number]) E-signed By Jeannette Vidal, PT, DPT Physical Therapy Outpatient Evaluation Insurance Information Recert Due Date 03/26/25 Insurance Name [employer],Medicare B Medical Diagnosis R TKA Treating Diagnosis weakness, difficulty ambulating, impaired ROM R knee, stiffness R knee Referring MD Serna Subjective Preferred Name Moni Subjective Pt reports pain R knee with walking and on stairs. She has end stage OA R knee and has decided to pursue a R TKA. Had previous L TKA 2016. Spouse had TKA in 2019 as well. Pt is quiet, spouse answers many of the history questions for her . She reports pain R lat knee, R PSIS. Pain Comments pain R lat joint line, R PSIS on palpation Date of Last Physician Visit 01/08/25 Date of Next Physician Visit 01/08/25 Date of Surgery (If applicable) 01/16/25 Current Work Status Retired Precautions Treatment Precautions/Contraindications Access Code: [email or web address] URL: [email or web address] Date: 12/27/2024 Prepared by: Jeannette Vidal Exercises - Supine Single Leg Ankle Pumps - 3 x daily - 7 x weekly - 10 reps - edema management exercise type - Supine Quadricep Sets - 3 x daily - 7 x weekly - 10 reps - 5 seconds hold - strength exercise type - Supine Short Arc Quad - 3 x daily - 7 x weekly - 10 reps - 5 seconds hold - strength exercise type - Active Straight Leg Raise with Quad Set - 3 x daily - 7 x weekly - 10 reps - 2-3 second hold - strength exercise type - Supine Heel Slide - 3 x daily - 7 x weekly - 10 reps - range of motion exercise type - Supine Isometric Hamstring Set - 3 x daily - 7 x weekly - 10 reps - 5 sec hold - strength exercise type - Seated Knee Flexion Stretch - 3 x daily - 7 x weekly - 10 reps - 5 second hold - range of motion/stretch exercise type - Seated Long Arc Quad - 3 x daily - 7 x weekly - 10 reps - 5 second hold - range of motion/strength exercise type - Seated Passive Knee Extension - 3 x daily - 7 x weekly - 1 reps - 5-15 minutes hold - strength exercise type Patient Education - Safe Practices For Preventing Falls - Going Up and Down Stairs With Two Rails After Surgery - Walker WBAT - Ice Weight Bearing Status Weight Bear as Tolerated Therapy Limitations/Systems Review Not Limited Objective Range of Motion B shldrs flex/abd 0-170, ER/IR 0-60 elbows/wrists/hands full R hip 0-110 flex, abd 0-30, ER 0-45, IR 0-30 R knee 5-116 flex L hip flex 0-120, abd 0-30, ER 0-45, IR 0-50 L knee 0-120 ankles DF to 15, PF to 50 Strength 5/5 L hip flex/abd/add R hip 4/5 flex pain, abd 4+/5, add 5-/5 p R knee 4/5 flex/ext, pain lateral joint line DF/PF 5-/5 B Swelling edema R knee, wears sleeve Palpation pain lat incision line and R PSIS Balance & Gait amb no device ~20 min at a time per her report. Gt today with L foot turned outwards, some knee flex knee at stance . stairs step to pattern, leads up with L. Posture rounded shldrs Sensation/Reflexes intact to light touch Functional Test Performed & Score LEFS 38/80 with spouse assisting pt to answer questions. Assessment Assessment/Impression Moni is a 79 year old female with hx of GERD, HTN, L TKA, osteoporosis, polymyalgia rheumatica and hypercholesterolemia now undergoing a R TKA on 01/16/25 due to end stage OA. At baseline, Moni lives with her spouse Ori in a 1 level home, 3 step entry with railing. She is ind at baseline in ADLS , amb no device, drives. Noted some word finding difficulties at times today, spouse assists with answering history questions. Does well with repetition for new learning. Pt presents with weakness R hip and knee, pain R PSIS and lat knee, amb with knee flexed on R, L foot turned outwards. Stairs step to pattern. Pt was instructed in TKA ex program (quad sets, ham sets, ankle pumps, heel slides, SAQ, SLR, seated knee flex/ext and hamstring stretches) per protocol to be practiced pre-operatively and for improved learning post- operatively. Pt was instructed in hospital post-op progression in PT, safety, fall prevention. Pt was instructed in positioning in chair, use of ice/polar care, bed, transfer safety, gt safety with walker, stairs, car transfers and outpatient therapy progression. Primary Functional Limitations impaired ROM, impaired strength, pain, impaired transfers, impaired gt, impaired mobility Plan of Care Rehabilitation Potential Good Physical Therapy Goals 1. Within this session: Pt will verbalize understanding of pre-op/post-op safety, mobility and exercises with home program issued and pt returning for ongoing therapy after TKA replacement. After surgery: Within 10-12 weeks: 1. Pt will have knee AROM 0- 120 degrees for transfers, ADLs, and stairs independence. 2. Pt will amb 20 min with se cane or no device as indicated, safely and independently for community and household ambulation. 3. Pt will be independent in home ex program for intermediate frame tender pain management and to promote independence and to decrease fall risk. 4. Pt will ascend/descend 13 stairs with railing independently for community mobility. Coordination/Communication With Referral Source,Patient Caregiver,Employer,Elevator Pilot ([employer]) Treatment Plan/Direct Interventions Dry Needling,Gait Training,Ice /Cold/Vasopneumatic,Joint Mobilization,Manual Therapy, Neuromuscular Re-ed,Orthotics/ Braces,Self-Care/Home Management,Therapeutic Activities,Therapeutic Exercises Patient Will Be Discharged From Therapy Completion of LTG(s),Skills Plateau,Independent w/HEP, Independently Progressing Evaluation Billing Untimed Code Treatment Minutes 14 PT Eval No Charge No Complexity Low Certification Information Initial Certification Date 12/27/24 Ending Certification Date 03/26/25 Provider Signature Required Yes Provider Signature Shows Agreement With POC & Medical Necessity Physician NPI Number Write NPI# Here Physician Comment/Change : Physician Signature & Date Requested Please Sign/Date Here
--- NOTE | 2025-02-10 16:59 | PT.OPDNX ---
PT [facility] Daily Note PT [facility] Daily Note Start: 12/27/24 07:24 Freq: Status: Active Protocol: Document 02/10/25 16:45 NLR (Rec: 02/10/25 16:57 NLR [id number]) E-signed By Bing Rodriguez DPT PT OP Daily Progress Note Visit Information Note Type Discharge Note Visit Number [id number] Insurance Information Recert Due Date 03/26/25 Insurance Name [employer],Medicare B Medical Diagnosis R TKA Treating Diagnosis M25.561 Pain right knee M25.661 Stiffness right knee Referring MD Partha Serna MD Subjective Preferred Name OMERO Monten[place]ro and her Ori return for follow up. She is walking with her single point cane and doing very well. She reports she can put her shoes and socks on independently, is able to do all of her self cares at home, is able to do stairs and is doing her exercises daily indpendently. Pain Comments 0/10 (was 10/10 right after surgery) Date of Last Physician Visit 01/22/25 Date of Next Physician Visit 02/26/25 Date of Surgery (If applicable) 01/16/25 Precautions Treatment Precautions/Contraindications R TKA p/o Weight Bearing Status Weight Bear as Tolerated Home Exercise Home Exercise Comments Reviewed and progressed HEP today. Access Code: [email or web address] URL: [email or web address] Date: 02/06/2025 Prepared by: Bing Thompson Exercises - Ankle Pumps - 5 x daily - 7 x weekly - 10 reps - edema management exercise type - Seated Knee Flexion Stretch - 3 x daily - 7 x weekly - 1 reps - 1-5 minute hold - range of motion/stretch exercise type - Seated Passive Knee Extension - 3 x daily - 7 x weekly - 1 reps - 5-15 minutes hold - strength exercise type - Seated Knee Flexion with Resistance - 3 x daily - 7 x weekly - 2 sets - 10 reps - 3- 5 seconds hold - strength exercise type - Seated Knee Extension with Resistance - 3 x daily - 7 x weekly - 2 sets - 10 reps - 3- 5 seconds hold - strength exercise type - Seated Knee Lifts with Resistance - 3 x daily - 7 x weekly - 2 sets - 10 reps - 2 -3 second hold - strength exercise type - Seated Hip Abduction with Resistance - 3 x daily - 7 x weekly - 2 sets - 10 reps - 2- 3 seconds hold - strength exercise type - Heel Raises with Counter Support - 3 x daily - 7 x weekly - 1-2 sets - 10 reps - 2-3 seconds hold - strength/ balance exercise type - Standing March with Counter Support - 3 x daily - 7 x weekly - 1-2 sets - 10 reps - 2-3 seconds hold - strength/ balance exercise type - Standing Pendulum with Counter Support - 3 x daily - 7 x weekly - 1-2 sets - 10-15 reps - 2-3 seconds hold - strength/balance exercise type Objective Other/Pertinent Objective Eval: R knee ROM 14-100 Eval: R quad strength 3+/5, R hamstring strength 3+/5, R hip flexor strength 43/5 Functional Test Performed & Score EVAL: LEFS 38/80 53% impairment 02/10/25: LEFS 59/80 26% impairment Patient Instructed in Risks/Benefits Yes Therapeutic Exercise Therapeutic Exercise Minutes (minutes) 15 Therapeutic Exercise: To Restore Reviewed HEP, made final Functional Status adjustments and finalized program with patient and her . Gait & Stair Training Gait Training/Stairs Minutes (minutes) 15 Gait & Stair Training Comments Stair negotiation with cane and one railing - able to do independently. Gait outside on grass with SPC, modified independent (she states she rarely if ever would have a need to walk on grass without Ori) Treatment Minutes Timed Code Treatment Minutes 30 Total Treatment Time 30 Billing Units Gait Training/Stairs Units 1 Therapeutic Exercise Units 1 Assessment/Impression Assessment/Impression Omero is doing really well. She is ambulating independently with SPC, is independent on stairs with one railing, is independent in donning socks/shoes and is able to do all of her self cares. She is doing her HEP 3X/day and states she has little to no pain or stiffness . She has achieved all of her goals and skilled intervention is no longer necessary at this point. She returns to see Dr. Serna in a few weeks. Will DC with HEP. Primary Functional Limitations None at DC Plan of Care Physical Therapy Goals 1. Patient will be independent with home exercise program as instructed, modified and progressed by physical therapist in order to be independently and actively participating in their rehabilitation and return to prior level of function. Goal to be achieved by 04/21/2025. ACHIEVED 2. Patient will demonstrate ability to walk for 30 minutes (s) without significant increase in pain greater than 2/10 to allow patient to be able to safely and independently return to participation in desired level of function with daily activities such general housekeeping, grocery shopping , going to appointments, walking for exercise without pain or difficulty. Goal to be achieved by 04/21/2025. ACHIEVED 3. Patient will ascend/descend 2 full flight(s) of stairs with [id number] pattern without significant increase in difficulty or pain over 2/ 10 allowing for safe and independent mobility through their home/work environment. Goal to be achieved by 2024. ACHIEVED Daily Plan of Care Discharge Daily Plan of Care Comments DC with HEP R knee ROM improved to 2-118 ( from 4-114) Discharge Note Discharge Summary Omero is doing really well. She is ambulating independently with SPC, is independent on stairs with one railing, is independent in donning socks/shoes and is able to do all of her self cares. She is doing her HEP 3X/day and states she has little to no pain or stiffness . She has achieved all of her goals and skilled intervention is no longer necessary at this point. She returns to see Dr. Serna in a few weeks. Will DC with RODDY. Date of First Visit for Therapy 01/20/25 Date of Last Visit for Therapy 02/10/25 Initial Primary Functional Limitations impaired ROM, impaired strength, pain, impaired transfers, impaired gt, impaired mobility Initial Pain Level 3/10 (was 10/10 initially after surgery) Pain Level at Discharge 0/10 Interventions Provided During Treatment Gait Training,Manual Therapy, Neuromuscular Re-Ed, Therapeutic Activities, Therapeutic Exercise,Self Care /Home Management Recommendations/Reason for Discharge Met All Therapy Goals Discharge Instructions DC with HEP
== END 2025-02-17 15:45 | disposition home or self-care (01) ==
PROVIDERS: Visit Provider Orthopaedic Surgery
DX: M17.11 Unilateral primary osteoarthritis, right knee (principal); Z96.651 Presence of right artificial knee joint; M25.561 Pain in right knee; M25.661 Stiffness of right knee, not elsewhere classified; R53.1 Weakness; R26.2 Difficulty in walking, not elsewhere classified; Z74.09 Other reduced mobility; Z51.89 Encounter for other specified aftercare
CPT/HCPCS: 97110; 97116; 97140; 97161